=== PATIENT | male | born 1960 | race African-American/Black ===

== ENCOUNTER 2018-03-25 10:56 | Emergency (ER) | payer BC ==
[2018-03-25 11:53] LABS: Absolute Lymphocytes (CBC) 0.7 K/uL (0.7-4.9); Absolute Monocytes 0.3 K/uL (0.1-1.3); Absolute Neutrophil 6.3 K/uL (1.8-8.0); Basophils % 0.3 % (0-1.3); Eosinophils % 0.4 % (0-4.4); Hematocrit 45.4 % (39.6-49.0); Lymphocytes % 9.3 % (15.3-44.8); MCH 32.4 pg (27.0-35.0); MCV 96.7 fL (80-100); MPV 9.5 fL (7.6-11.3); Monocytes % 4.5 % (3.3-12.3); RBC Red Blood Cell Count 4.69 M/uL (4.33-5.43)
[2018-03-25] MEDS ORDERED: FAMOTIDINE 20 MG/2 ML VIAL IV ONE (11:56)
[2018-03-25] MEDS ORDERED: ONDANSETRON 4 MG/2 ML VIAL ONE (11:56)
[2018-03-25 12:03] LABS: Bicarbonate 26 mEq/L (21-31); Glucose Level 184 mg/dL (65-120); Lipase 23 U/L (22-51); Potassium 4.1 mEq/L (3.6-5.0); Sodium Level 135 mEq/L (135-145)
[2018-03-25 12:09] LABS: ALT/SGPT 19 IU/L (10-60); AST/SGOT 18 IU/L (10-42); Alkaline Phosphatase 65 IU/L (42-121); Amylase Level 54 U/L (28-100); BUN Blood Urea Nitrogen 20 mg/dL (6-20); Bilirubin Direct 0.1 mg/dL (0-0.2); Bilirubin Total 0.8 mg/dL (0.3-1.2); Magnesium 1.9 mg/dL (1.8-2.5); Protein, Total 7.8 g/dL (6.0-8.3)
--- NOTE | 2018-03-25 13:08 | RAD REPORT ---
EXAM DESCRIPTION: RAD - Chest Single View - 03/25/2018 12:47 pm CLINICAL HISTORY: Chest pain. COMPARISON: 07/06/2016 FINDINGS: Portable technique limits examination quality. The lungs are grossly clear. The heart is normal in size. No displaced fractures. IMPRESSION: No acute intrathoracic process suspected.
--- NOTE | 2018-03-25 13:41 | EKG ---
Test Date: 2018-03-25 Test Time: 11:40:18 Rig Welder: RICHARD MEASUREMENT RESULTS: Intervals: Rate: 75 NV: 190 QRSD: 88 QT: 372 QTc: 415 [place]: P: 40 NV: 190 QRS: 62 T: 102 INTERPRETIVE STATEMENTS: Normal sinus rhythm Nonspecific T wave abnormality Abnormal ECG Compared to ECG 07/07/2016 06:36:13 Sinus bradycardia no longer present Sinus arrhythmia no longer present T-wave abnormality still present Electronically Signed On 03-25-18 13:40:28 CDT by Yordy Arzola
[2018-03-25 13:54] LABS: Blood Morphology Comment NOT SEEN (NOT SEEN); Platelet Estimate ADEQ; Urine White Blood Cell Casts OK
--- NOTE | 2018-03-25 15:59 | RAD REPORT ---
EXAM DESCRIPTION: CT - Abdomen Pelvis W Contrast - 03/25/2018 3:45 pm CLINICAL HISTORY: Abdominal pain. Diarrhea and vomiting COMPARISON: None. TECHNIQUE: Computed axial tomography of the abdomen and pelvis was obtained. 100 cc Isovue-300 is ad ministered intravenously. Oral contrast was given. All CT scans are performed using dose optimization technique as appropriate and may include automated exposure control or mA/KV adjustment according to patient size. FINDINGS: Three lesions are present within the liver. The largest measures 15 millimeters. Hounsfield unit 45. Spleen, pancreas, adrenals and kidneys appear unremarkable. The appendix is not definitely seen. There is no evidence of diverticulitis. A small left inguinal hernia is present. IMPRESSION: Three hepatic lesions do not represent simple cysts. It is recommended that the patient have a nonemergent MRI with contrast and delayed images for further evaluation
[2018-03-25 17:21] LABS: Urine Bacteria NONE SEEN /HPF (NONE SEEN); Urine Culture Reflex Order NOT NEEDED; Urine Mucus HEAVY /HPF (NONE SEEN); Urine RBC NONE SEEN /HPF (NONE SEEN)
[2018-03-25 17:23] LABS: Urine Blood NEGATIVE (NEG); Urine Glucose TRACE (NEG); Urine Protein TRACE (NEG); Urine Specific Gravity 1.025 (1.005-1.030); Urine pH 5.5 (5.0-7.0)
--- NOTE | 2018-03-25 17:32 | EDPHYS ---
Physician Documentation [facility] Name: Stanton Christiansen Age: 57 yrs Sex: Male : 1960 Arrival Date: 03/25/2018 Time: 10:59 Bed 17 Private MD: None, None ED Physician Silvestre Avila HPI: 03/25 11:35 This 57 yrs old Black Male presents to ER via Ambulatory with complaints of Chest cp Tightness, Vomiting. 11:35 The patient presents to the emergency department with nausea, that is moderate, cp vomiting, that is intermittent, diarrhea, that is intermittent, abdominal pain, of the epigastric area, right upper quadrant and left upper quadrant. Onset: The symptoms/episode began/occurred yesterday. Associated signs and symptoms: Pertinent positives: chest pain, Pertinent negatives: constipation, fever, GI bleeding. 11:35 Severity of symptoms: in the emergency department the symptoms are unchanged despite cp home interventions. Historical: - Allergies: 11:11 No Known Allergies; aa5 - PMHx: 11:11 Diabetes - NIDDM; Myocardial infarction; aa5 - PSHx: 11:11 spleen removal; aa5 - Immunization history:: Adult Immunizations unknown. - Social history:: Smoking status: Patient uses tobacco products, smokes one-half pack cigarettes per day. - Ebola Screening: : No symptoms or risks identified at this time. ROS: 11:37 Eyes: Negative for injury, pain, redness, and discharge. cp 11:37 Constitutional: Negative for body aches, chills, fever, poor PO intake. 11:37 ENT: Negative for drainage from ear(s), ear pain, difficulty swallowing, difficulty handling secretions, hoarseness. 11:37 Cardiovascular: Positive for chest pain, Negative for edema, palpitations. 11:37 Respiratory: Negative for cough, shortness of breath, wheezing. 11:37 Abdomen/GI: Positive for abdominal pain, nausea, vomiting, and diarrhea, Negative for dysphagia, hematemesis, black/tarry stool, rectal bleeding. 11:37 : Negative for urinary symptoms, testicular pain 11:37 Skin: Negative for cellulitis, rash. 11:37 Neuro: Negative for altered mental status, dizziness, headache, syncope, near syncope, weakness. 11:37 All other systems are negative. Exam: 11:43 Constitutional: The patient appears in no acute distress, alert, awake, cp non-diaphoretic, non-toxic, well developed, well nourished, uncomfortable. 11:43 Head/Face: Normocephalic, atraumatic. Eyes: Pupils equal round and reactive to light, cp extra-ocular motions intact. Lids and lashes normal. Conjunctiva and sclera are non-icteric and not injected. Cornea within normal limits. Periorbital areas with no swelling, redness, or edema. ENT: Nares patent. No nasal discharge, no septal abnormalities noted. Tympanic membranes are normal and external auditory canals are clear. Oropharynx with no redness, swelling, or masses, exudates, or evidence of obstruction, uvula midline. Mucous membranes moist. Neck: Trachea midline, no thyromegaly or masses palpated, and no cervical lymphadenopathy. Supple, full range of motion without nuchal rigidity, or vertebral point tenderness. No Meningismus. Chest/axilla: Normal chest wall appearance and motion. Nontender with no deformity. No lesions are appreciated. 11:43 Cardiovascular: Rate: normal, Rhythm: regular, Pulses: Pulses are 2+ in right radial artery and left radial artery. Edema: is not appreciated, JVD: is not appreciated. 11:43 Respiratory: the patient does not display signs of respiratory distress, Respirations: normal, no use of accessory muscles, no retractions, no splinting, no tachypnea, labored breathing, is not present, Breath sounds: are clear throughout, no decreased breath sounds, no stridor, no wheezing. 11:43 Abdomen/GI: Inspection: abdomen appears normal, Bowel sounds: active, all quadrants, Palpation: soft, in all quadrants, moderate abdominal tenderness, in all quadrants, rebound tenderness, is not appreciated, voluntary guarding, is elicited in all quadrants, involuntary guarding, is not appreciated. 11:43 Back: CVA tenderness, is absent. 11:43 Skin: cellulitis, is not appreciated, no rash present. 11:43 Neuro: Orientation: to person, place \T\ time. Mentation: lucid, able to follow commands, Cerebellar function: is grossly normal, Motor: moves all fours, strength is normal, Sensation: no obvious gross deficits. 11:45 ECG was reviewed by the Attending Physician. cp 16:25 ECG was reviewed by the Attending Physician. cp Vital Signs: 11:12 BP 139 / 82; Pulse 77; Resp 18; Temp 98.6; Pulse Ox 96% ; Weight 85.28 kg (R); Height 5 aa5 ft. 11 in. (180.34 cm) (R); Pain 8/10; 12:47 BP 145 / 83; Pulse 72; Resp 22; Pulse Ox 97% on R/A; mh5 14:22 BP 128 / 82; Pulse 74; Resp 16; Pulse Ox 99% ; jl7 15:00 BP 144 / 85; Pulse 74; Resp 16; Pulse Ox 100% ; jl7 16:00 BP 154 / 88; Pulse 65; Resp 16; Pulse Ox 100% ; jl7 17:00 BP 139 / 85; Pulse 66; Resp 16; Pulse Ox 100% ; jl7 17:56 BP 148 / 84; Pulse 66; Resp 16; Pulse Ox 100% ; jl7 11:12 Body Mass Index 26.22 (85.28 kg, 180.34 cm) aa5 MDM: 11:15 Patient medically screened. cp 17:25 Data reviewed: vital signs, nurses notes, lab test result(s), EKG, radiologic studies, cp CT scan, plain films. 17:25 Test interpretation: by ED physician or midlevel provider: ECG. Response to treatment: cp the patient's symptoms have markedly improved after treatment. Special discussion: Based on the patient's history, exam, and Dx evaluation, there is no indication for emergent intervention or inpatient Tx. It is understood by the patient/guardian that if the Sx's persist or worsen they need to return immediately for re-evaluation. Based on the patient's Hx, exam, and Dx evaluation, there is no indication for emergent surgery or inpatient Tx. It is understood by the patient/guardian that if the Sx's persist or worsen they need to return immediately for re-evaluation. ED course: VSS. Symptoms markedly improved after IV fluids and meds. Patient tolerating po fluids and crackers. Will discharge to home for continued monitoring. 03/25 11:31 Order name: Amylase, Serum; Complete Time: 15:28 cp 03/25 11:31 Order name: Basic Metabolic Panel; Complete Time: 15:28 cp 03/25 15:29 Interpretation: Normal except: CL 98; GLUC 184. cp 03/25 11: Order name: CBC with Diff; Complete Time: 15:28 cp 06/05 15:29 Interpretation: Normal except: GRAZYNA% 85.5; LYM% 9.3. cp 06/05 11:31 Order name: Creatinine for Radiology; Complete Time: 15:28 cp 06/05 11:31 Order name: Hepatic Function; Complete Time: 15:28 cp 06/05 15:29 Interpretation: Normal except: GLOB 3.8. cp 06/05 11:31 Order name: Lipase; Complete Time: 15:28 cp 06/05 11:31 Order name: Urine Microscopic Only; Complete Time: 17:24 cp 06/05 11:31 Order name: Troponin (emerg Dept Use Only); Complete Time: 15:28 cp 06/05 11:31 Order name: Magnesium; Complete Time: 15:28 cp 06/05 11:31 Order name: XRAY Chest (1 view); Complete Time: 15:28 cp 06/05 11:55 Order name: CBC Smear Scan; Complete Time: 15:28 EDMS 06/05 12:44 Order name: CT Abd/Pelvis - W/Contrast; Complete Time: 16:06 cp 06/05 16:07 Order name: Troponin (emerg Dept Use Only); Complete Time: 17:24 cp 06/05 17:24 Interpretation: TROPED < 0.03; Reviewed. cp 06/05 17:19 Order name: Urine Dipstick--Ancillary (enter results); Complete Time: 17:24 bd 06/05 11:31 Order name: IV Saline Lock; Complete Time: 11:51 cp 06/05 11:31 Order name: Labs collected and sent; Complete Time: 11:51 cp 06/05 11:31 Order name: EKG; Complete Time: 11:32 cp 06/05 11:31 Order name: EKG - Nurse/Tech; Complete Time: 11:51 cp 06/05 16:07 Order name: EKG; Complete Time: 16:07 cp 06/05 16:07 Order name: EKG - Nurse/Tech; Complete Time: 17:54 cp EC:45 Rate is 75 beats/min. Rhythm is regular. CA interval is normal. QRS interval is normal. cp QT interval is normal. T waves are Inverted in leads aVL, V5. Interpreted by me. Reviewed by me. 16:25 Rate is 65 beats/min. Rhythm is regular. CA interval is prolonged at 206 msec. QRS cp interval is normal. QT interval is normal. T waves are Inverted in lead V5. Interpreted by me. Reviewed by me. Administered Medications: 12:05 Drug: Zofran 4 mg Route: IVP; Site: left antecubital; jl7 14:21 Follow up: Response: No adverse reaction jl7 12:07 Drug: Pepcid 20 mg Route: IVP; Site: left antecubital; jl7 14:21 Follow up: Response: No adverse reaction jl7 Disposition: 18:16 Co-signature as Attending Physician, Silvestre Avila MD. rn 03/26 07:19 Co-signature as Attending Physician, Silvestre Avila MD. rn Disposition: 03/25/18 17:31 Discharged to Home. Impression: Nausea and vomiting, Diarrhea, unspecified, Chest pain, unspecified. - Condition is Stable. - Discharge Instructions: Food Choices to Help Relieve Diarrhea, Adult, Nonspecific Chest Pain, Diarrhea, Nausea and Vomiting, Aspirin and Your Heart. - Prescriptions for Bentyl 20 mg Oral Tablet - take 1 tablet by ORAL route every 6 hours As needed; 30 tablet. Pepcid 20 mg Oral Tablet - take 1 tablet by ORAL route every 12 hours for 10 days; 20 tablet. Zofran 4 mg Oral Tablet - take 1 tablet by ORAL route every 12 hours As needed; 20 tablet. - Medication Reconciliation Form, Thank You Letter, Antibiotic Education, Prescription Opioid Use form. - Work release form (03/26/18 12:02). em1 - Follow up: Private Physician; When: 1 - 2 days; Reason: Recheck today's complaints. - Problem is new. - Symptoms have improved. Signatures: Dispatcher [employer] EDMS Silvestre Avila MD MD rn Calderon, Audri RN RN aa5 Vincent Anderson PA PA cp Leal, Jahala, RN RN [email or web address] Wu Freed em1 Corrections: (The following items were deleted from the chart) 03/25 17:58 17:31 03/25/2018 17:31 Discharged to Home. Impression: Nausea and vomiting; Diarrhea, jl7 unspecified; Chest pain, unspecified. Condition is Stable. Forms are Medication Reconciliation Form, Thank You Letter, Antibiotic Education, Prescription Opioid Use. Follow up: Private Physician; When: 1 - 2 days; Reason: Recheck today's complaints. Problem is new. Symptoms have improved. cp
--- NOTE | 2018-03-25 17:32 | ER ---
Nurse's Notes [facility] Name: Stanton Christiansen Age: 57 yrs Sex: Male : 1960 Arrival Date: 03/25/2018 Time: 10:59 Bed 17 Private MD: None, None Diagnosis: Nausea and vomiting;Diarrhea, unspecified;Chest pain, unspecified Presentation: 03/25 11:10 Presenting complaint: Patient states: "I think I got food poisoning yesterday". Pt c/o aa5 upped abd pain, chest pain, and N/V/D since yesterday. Transition of care: patient was not received from another setting of care. Onset of symptoms was March 2018. Risk Assessment: Do you want to hurt yourself or someone else? Patient reports no desire to harm self or others. Initial Sepsis Screen: Does the patient meet any 2 criteria? No. Patient's initial sepsis screen is negative. Does the patient have a suspected source of infection? No. Patient's initial sepsis screen is negative. Care prior to arrival: None. 11:10 Method Of Arrival: Ambulatory aa5 11:10 Acuity: PATRICK 3 aa5 Historical: - Allergies: 11:11 No Known Allergies; aa5 - PMHx: 11:11 Diabetes - NIDDM; Myocardial infarction; aa5 - PSHx: 11:11 spleen removal; aa5 - Immunization history:: Adult Immunizations unknown. - Social history:: Smoking status: Patient uses tobacco products, smokes one-half pack cigarettes per day. - Ebola Screening: : No symptoms or risks identified at this time. Screenin:30 Abuse screen: Denies threats or abuse. Denies injuries from another. Nutritional jl7 screening: No deficits noted. Tuberculosis screening: No symptoms or risk factors identified. Fall Risk IV access (20 points). Total [place] Fall Scale indicates No Risk (0-24 pts). Assessment: 11:30 General: Appears in no apparent distress. uncomfortable, Behavior is calm, cooperative, jl7 appropriate for age. Pain: Complains of pain in anterior aspect of left upper chest Pain does not radiate. Pain currently is 8 out of 10 on a pain scale. Quality of pain is described as "Pins \\T\\ [place]." Pain began 1 day ago. Is continuous. Neuro: Level of Consciousness is awake, alert, obeys commands, Oriented to person, place, time, situation. Cardiovascular: Heart tones S1 S2 present Patient's skin is warm and dry. Respiratory: Airway is patent Respiratory effort is even, unlabored, Respiratory pattern is regular, symmetrical, Breath sounds are clear bilaterally. GI: Reports diarrhea, nausea, vomiting, since this morning. : No signs and/or symptoms were reported regarding the genitourinary system. EENT: No signs and/or symptoms were reported regarding the EENT system. Derm: Skin is dry, Skin is normal, Skin temperature is warm. Musculoskeletal: No signs and/or symptoms reported regarding the musculoskeletal system. 14:00 Reassessment: pt finished drinking oral contrast, CT notified. jl7 15:00 Reassessment: Patient and/or family updated on plan of care and expected duration. Pain jl7 level reassessed. Patient is alert, oriented x 3, equal unlabored respirations, skin warm/dry/pink. 16:00 Reassessment: No changes from previously documented assessment. Patient and/or family jl7 updated on plan of care and expected duration. Pain level reassessed. Patient is alert, oriented x 3, equal unlabored respirations, skin warm/dry/pink. 17:00 Reassessment: Patient and/or family updated on plan of care and expected duration. Pain jl7 level reassessed. Patient is alert, oriented x 3, equal unlabored respirations, skin warm/dry/pink. Vital Signs: 11:12 BP 139 / 82; Pulse 77; Resp 18; Temp 98.6; Pulse Ox 96% ; Weight 85.28 kg (R); Height 5 aa5 ft. 11 in. (180.34 cm) (R); Pain 8/10; 12:47 BP 145 / 83; Pulse 72; Resp 22; Pulse Ox 97% on R/A; mh5 14:22 BP 128 / 82; Pulse 74; Resp 16; Pulse Ox 99% ; jl7 15:00 BP 144 / 85; Pulse 74; Resp 16; Pulse Ox 100% ; jl7 16:00 BP 154 / 88; Pulse 65; Resp 16; Pulse Ox 100% ; jl7 17:00 BP 139 / 85; Pulse 66; Resp 16; Pulse Ox 100% ; jl7 17:56 BP 148 / 84; Pulse 66; Resp 16; Pulse Ox 100% ; jl7 11:12 Body Mass Index 26.22 (85.28 kg, 180.34 cm) aa5 ED Course: 10:59 Patient arrived in ED. mr 10:59 None, None is Private Physician. mr 11:11 Triage completed. aa5 11:11 Arm band placed on. aa5 11:15 Vincent Anderson PA is PHCP. cp 11:15 Silvestre Avila MD is Attending Physician. cp 11:16 Noemy Schrader RN is Primary Nurse. jl7 11:30 Patient has correct armband on for positive identification. Placed in gown. Bed in low jl7 position. Call light in reach. Side rails up X 1. travel assistant on. Pulse ox on. NIBP on. 11:35 Missed attempt(s): 20 gauge in right forearm. Bleeding controlled, band aid applied, jl7 catheter tip intact. 11:37 Missed attempt(s): 20 gauge in right antecubital area. Bleeding controlled, band aid jl7 applied, catheter tip intact. 11:40 Initial lab(s) drawn, by ia, sent to lab. Inserted saline lock: 20 gauge in left jl7 antecubital area, using aseptic technique. Blood collected. Patient maintains SpO2 saturation greater than 95% on room air. 11:47 EKG done, by educational technician. reviewed by Vincent SHARP. at1 12:47 XRAY Chest (1 view) In Process Unspecified. EDMS 15:[address] via wheelchair. vm2 15:45 CT completed. Patient tolerated procedure well. Patient moved back from CT. vm2 15:45 CT Abd/Pelvis - W/Contrast In Process Unspecified. EDMS 17:57 No provider procedures requiring assistance completed. IV discontinued, intact, jl7 bleeding controlled, No redness/swelling at site. Pressure dressing applied. Administered Medications: 12:05 Drug: Zofran 4 mg Route: IVP; Site: left antecubital; jl7 14:21 Follow up: Response: No adverse reaction jl7 12:07 Drug: Pepcid 20 mg Route: IVP; Site: left antecubital; jl7 14:21 Follow up: Response: No adverse reaction jl7 Outcome: 17:31 Discharge ordered by . cp 17:57 Discharged to home ambulatory. jl7 17:57 Condition: stable 17:57 Discharge instructions given to patient, family, Instructed on discharge instructions, follow up and referral plans. medication usage, Demonstrated understanding of instructions, follow-up care, medications, Prescriptions given X 3. 17:58 Patient left the ED. jean-claude Signatures: Dispatcher [employer] DONAL LanieraSafia mr AvilaSophy, RN RN [email or web address] Cinda lowe, inspector [employer] truing EKG Tat1 Vincent Anderson PA PA cp Martinez, Maria Noemy Hill RN RN jl7 Nel [facility]
[2018-03-25 19:04] VITALS: TEMP 98.6
[2018-03-25 19:07] VITALS: O2SAT 100
[2018-03-25 19:10] VITALS: BP 148/84
--- NOTE | 2018-03-26 07:42 | EKG ---
Test Date: 2018-03-25 Test Time: 16:23:28 Floral Artist: RICHARD MEASUREMENT RESULTS: Intervals: Rate: 65 CA: 206 QRSD: 88 QT: 376 QTc: 391 [place]: P: 36 CA: 206 QRS: 51 T: 116 INTERPRETIVE STATEMENTS: Normal sinus rhythm Nonspecific T wave abnormality Abnormal ECG Compared to ECG 03/25/2018 11:40:18 No significant changes Electronically Signed On 03-26-18 07:41:47 CDT by Jose Lynn
== END 2018-03-25 17:58 | disposition home or self-care (01) ==
LOC: ER 10:56
DX: R11.2 Nausea with vomiting, unspecified (principal); R19.7 Diarrhea, unspecified; R07.9 Chest pain, unspecified; F17.210 Nicotine dependence, cigarettes, uncomplicated; I25.2 Old myocardial infarction
CPT/HCPCS: 36415; 71045; 74177; 80048; 80076; 81003; 81015; 82150; 82962; 83690; 83735; 84484; 85025; 93005; 96374; 96375; 99285; J2405; Q9967

== ENCOUNTER 2018-09-25 05:33 | Emergency (ER) | payer BC, SELFPAY ==
[2018-09-25 06:06] LABS: Absolute Lymphocytes (CBC) 2.4 K/uL (0.7-4.9); Absolute Monocytes 0.4 K/uL (0.1-1.3); Eosinophils % 1.8 % (0-4.4); Hematocrit 40.4 % (39.6-49.0); Lymphocytes % 39.3 % (15.3-44.8); MCV 94.8 fL (80-100); MPV 9.5 fL (7.6-11.3); Monocytes % 7.5 % (3.3-12.3); RBC Red Blood Cell Count 4.26 M/uL (4.33-5.43)
[2018-09-25 06:21] LABS: ALT/SGPT 26 U/L (12-78); AST/SGOT 17 U/L (15-37); Albumin 3.6 g/dL (3.4-5.0); Alkaline Phosphatase 76 U/L (45-117); BUN Blood Urea Nitrogen 22 mg/dL (7-18); Bicarbonate 24 mmol/L (21-32); Bilirubin Direct 0.1 mg/dL (0-0.2); Bilirubin Total 0.4 mg/dL (0.2-1.0); Glucose Level 172 mg/dL (74-106); Magnesium 2.3 mg/dL (1.8-2.4); NT PRO-BNP 64 pg/mL (<125); Potassium 4.1 mmol/L (3.5-5.1); Protein, Total 7.4 g/dL (6.4-8.2); Sodium Level 138 mmol/L (136-145); Troponin (Emerg Dept Use Only) < 0.02 ng/mL (0.0-0.045)
[2018-09-25] MEDS ORDERED: HYDROCODONE/APAP 10/325 TAB ONE (06:22)
--- NOTE | 2018-09-25 06:59 | ER ---
Nurse's Notes [facility] Name: Stanton Christiansen Age: 57 yrs Sex: Male : 1960 Arrival Date: 09/25/2018 Time: 05:35 Bed 5 Private MD: Diagnosis: Radiculopathy, cervical region Presentation: 09/25 05:35 Presenting complaint: Patient states: that since 0330 he has been having left chest fc pain that radiates to left neck and left arm. Also nausea but no vomiting. Transition of care: patient was not received from another setting of care. Onset of symptoms was September 25, 2018 at 03:30. Risk Assessment: Do you want to hurt yourself or someone else? Patient reports no desire to harm self or others. Initial Sepsis Screen: Does the patient meet any 2 criteria? No. Patient's initial sepsis screen is negative. Does the patient have a suspected source of infection? No. Patient's initial sepsis screen is negative. Care prior to arrival: Medication(s) given: Aleve x 2 at 0400. 05:35 Method Of Arrival: Wheelchair fc 05:35 Acuity: PATRICK 3 fc Historical: - Allergies: 05:46 No Known Allergies; fc - Home Meds: 05:46 None [Active]; fc - PMHx: 05:46 Diabetes - NIDDM; Myocardial infarction; fc - PSHx: 05:46 Appendectomy; fc - Immunization history:: Last tetanus immunization: unknown, Flu vaccine is up to date. - Social history:: Smoking status: Patient uses tobacco products, smokes one pack cigarettes per day. Patient uses alcohol, occasionally. - Ebola Screening: : Patient negative for fever greater than or equal to 101.5 degrees Fahrenheit, and additional compatible Ebola Virus Disease symptoms Patient denies exposure to infectious person Patient denies travel to an Ebola-affected area in the 21 days before illness onset. Screenin:35 Abuse screen: Denies threats or abuse. Nutritional screening: No deficits noted. fc Tuberculosis screening: No symptoms or risk factors identified. Fall Risk None identified. Assessment: 05:54 General: Appears in no apparent distress. uncomfortable, Behavior is calm, cooperative. bb Pain: Complains of pain in left side of neck and down left arm radiates from neck down left arm Pain began 4 hours ago. Neuro: Level of Consciousness is awake, alert, obeys commands, Oriented to person, place, time, situation. Cardiovascular: Heart tones S1 S2 present Capillary refill < 3 seconds Patient's skin is warm and dry. Pulses are all present. Edema is absent. Rhythm is sinus rhythm. Respiratory: Respiratory effort is even, unlabored, Respiratory pattern is regular, Breath sounds are clear bilaterally. GI: Abdomen is non-distended, Bowel sounds present X 4 quads. Abd is soft and non tender X 4 quads. : No signs and/or symptoms were reported regarding the genitourinary system. Derm: Skin is dry, Skin is normal, Skin temperature is warm. Musculoskeletal: Circulation, motion, and sensation intact. Reports pain in left arm. 06:43 Reassessment: Patient and/or family updated on plan of care and expected duration. Pain bb level reassessed. Patient is alert, oriented x 3, equal unlabored respirations, skin warm/dry/pink. pt states pain to left arm is slightly better. Vital Signs: 05:35 BP 173 / 94; Pulse 62; Resp 18; Temp 98.9(O); Pulse Ox 97% on R/A; Weight 99.79 kg (R); fc Height 5 ft. 10 in. (177.80 cm) (R); Pain 9/10; 06:43 BP 155 / 92; Pulse 60; Resp 20 S; Pulse Ox 97% on R/A; Pain 6/10; bb 05:35 Body Mass Index 31.57 (99.79 kg, 177.80 cm) fc ED Course: 05:35 Patient arrived in ED. es 05:35 Arm band placed on Patient placed in an exam room, on a stretcher. fc 05:35 Patient has correct armband on for positive identification. Placed in gown. Bed in low fc position. Call light in reach. polisher eyeglass frames on. Pulse ox on. NIBP on. 05:35 Patient maintains SpO2 saturation greater than 95% on room air. fc 05:43 Triage completed. fc 05:45 Inserted saline lock: 18 gauge in right forearm, using aseptic technique. ,using fc aseptic technique. per Kati Preciado RN Blood collected. 05:50 Initial lab(s) drawn, by me, sent to lab. bb 05:57 X-ray completed. Portable x-ray completed in exam room. Patient tolerated procedure kw well. 06:00 Minna Knott FNP-C is PHCP. kb 06:00 Ronnell Boland MD is Attending Physician. kb 06:17 Kati Preciado, RN is Primary Nurse. bb 06:17 XRAY Chest (1 view) Sent. mw2 06:17 Basic Metabolic Panel Sent. mw2 06:17 CBC with Diff Sent. mw2 06:17 LFT's Sent. mw2 06:17 Magnesium Sent. mw2 06:17 NT PRO-BNP Sent. mw2 06:17 PT-INR Sent. mw2 06:17 Troponin (emerg Dept Use Only) Sent. mw2 06:34 XRAY Chest (1 view) In Process Unspecified. EDMS Administered Medications: 06:17 Drug: Whitney 10 mg-325 mg 1 tabs Route: PO; bb 06:43 Follow up: Response: No adverse reaction; Pain is decreased bb Outcome: 06:59 Discharge ordered by . kb 07:44 Patient left the ED. ph Signatures: Dispatcher [employer] EDMS Minna Knott FNP-C FNP-Ckb Salyer, Edna es Chretien, Felicia, RN RN Kati Preciado, RN RN Teena Veras Patricia RN RN Mame Thurston mw2
--- NOTE | 2018-09-25 07:00 | EDPHYS ---
Physician Documentation [facility] Name: Stanton Christiansen Age: 57 yrs Sex: Male : 1960 Arrival Date: 09/25/2018 Time: 05:35 Bed 5 Private MD: ED Physician Ronnell Boland HPI: 09/25 06:28 This 57 yrs old Black Male presents to ER via Wheelchair with complaints of Chest Pain. kb 06:28 The patient or guardian complains of pain, that is acute, tenderness. The symptoms are kb located on the left posterior aspect of neck. Onset: The symptoms/episode began/occurred this morning, at 03:30. Context: The problem was sustained at home, The neck injury/problem resulted from from unknown cause. Associated signs and symptoms: The patient has no apparent associated signs or symptoms, The patient denies any alcohol use. The patient is not apparently intoxicated. No neurological symptoms were experienced by the patient prior to arrival in the emergency department. The pain radiates to the left arm. Modifying factors: The symptoms are alleviated by nothing. the symptoms are aggravated by movement, pressure. Severity of symptoms: At their worst the symptoms were moderate, in the emergency department the symptoms are unchanged. The patient has not experienced similar symptoms in the past. The patient has not recently seen a physician. Pt reports he was getting ready for work and started having pain to left side of neck that radiates down left arm. Tenderness upon palpation of left shoulder. Pain worse with movement of left arm at shoulder level. Full ROM. Denies chest pain. . Historical: - Allergies: 05:46 No Known Allergies; fc - Home Meds: 05:46 None [Active]; fc - PMHx: 05:46 Diabetes - NIDDM; Myocardial infarction; fc - PSHx: 05:46 Appendectomy; fc - Immunization history:: Last tetanus immunization: unknown, Flu vaccine is up to date. - Social history:: Smoking status: Patient uses tobacco products, smokes one pack cigarettes per day. Patient uses alcohol, occasionally. - Ebola Screening: : Patient negative for fever greater than or equal to 101.5 degrees Fahrenheit, and additional compatible Ebola Virus Disease symptoms Patient denies exposure to infectious person Patient denies travel to an Ebola-affected area in the 21 days before illness onset. ROS: 06:26 Constitutional: Negative for fever, chills, and weight loss, ENT: Negative for injury, kb pain, and discharge, Cardiovascular: Negative for chest pain, palpitations, and edema, Respiratory: Negative for shortness of breath, cough, wheezing, and pleuritic chest pain, Abdomen/GI: Negative for abdominal pain, nausea, vomiting, diarrhea, and constipation, MS/Extremity: Negative for injury and deformity, Skin: Negative for injury, rash, and discoloration, Neuro: Negative for headache, weakness, numbness, tingling, and seizure. 06:26 Neck: Positive for pain with movement, pain at rest, tenderness, of the left side of neck. Exam: 06:26 Constitutional: This is a well developed, well nourished patient who is awake, alert, kb and in no acute distress. Head/Face: Normocephalic, atraumatic. Chest/axilla: Normal chest wall appearance and motion. Nontender with no deformity. No lesions are appreciated. Cardiovascular: Regular rate and rhythm with a normal S1 and S2. No gallops, murmurs, or rubs. Normal PMI, no JVD. No pulse deficits. Respiratory: Lungs have equal breath sounds bilaterally, clear to auscultation and percussion. No rales, rhonchi or wheezes noted. No increased work of breathing, no retractions or nasal flaring. Abdomen/GI: Soft, non-tender, with normal bowel sounds. No distension or tympany. No guarding or rebound. No evidence of tenderness throughout. Back: No spinal tenderness. No costovertebral tenderness. Full range of motion. Skin: Warm, dry with normal turgor. Normal color with no rashes, no lesions, and no evidence of cellulitis. MS/ Extremity: Pulses equal, no cyanosis. Neurovascular intact. Full, normal range of motion. Neuro: Awake and alert, GCS 15, oriented to person, place, time, and situation. Cranial nerves II-XII grossly intact. Motor strength 5/5 in all extremities. Sensory grossly intact. Cerebellar exam normal. Normal gait. 06:26 Neck: External neck: tenderness, that is mild, of the left posterior aspect of neck. 06:26 Musculoskeletal/extremity: ROM: limited active range of motion due to pain, in the left arm, Circulation is intact in all extremities. Sensation intact. Vital Signs: 05:35 BP 173 / 94; Pulse 62; Resp 18; Temp 98.9(O); Pulse Ox 97% on R/A; Weight 99.79 kg (R); fc Height 5 ft. 10 in. (177.80 cm) (R); Pain 9/10; 06:43 BP 155 / 92; Pulse 60; Resp 20 S; Pulse Ox 97% on R/A; Pain 6/10; bb 05:35 Body Mass Index 31.57 (99.79 kg, 177.80 cm) fc MDM: 06:00 Patient medically screened. kb 06:27 Data reviewed: vital signs, nurses notes. Data interpreted: Pulse oximetry: on room air kb is 97 %. Interpretation: normal. Counseling: I had a detailed discussion with the patient and/or guardian regarding: the historical points, exam findings, and any diagnostic results supporting the discharge/admit diagnosis, lab results, radiology results, the need for outpatient follow up, a family practitioner, to return to the emergency department if symptoms worsen or persist or if there are any questions or concerns that arise at home. 09/25 05:42 Order name: Basic Metabolic Panel 09/25 05:42 Order name: CBC with Diff 09/25 05:42 Order name: LFT's 09/25 05:42 Order name: Magnesium 09/25 05:42 Order name: NT PRO-BNP 09/25 05:42 Order name: PT-INR 09/25 05:42 Order name: Troponin (emerg Dept Use Only) 09/25 06:08 Order name: Protime (+INR); Complete Time: 06:08 EDMS 09/25 06:18 Order name: CBC with Automated Diff; Complete Time: 06:25 EDMS 09/25 06:22 Order name: Basic Metabolic Panel; Complete Time: 06:25 EDMS 09/25 06:22 Order name: Liver (Hepatic) Function; Complete Time: 06:25 EDMS 09/25 06:22 Order name: Troponin (Emerg Dept Use Only); Complete Time: 06:25 EDMS 09/25 06:22 Order name: NT PRO-BNP; Complete Time: 06:25 EDMS 09/25 06:22 Order name: Magnesium; Complete Time: 06:25 EDMS 09/25 05:42 Order name: XRAY Chest (1 view) 09/25 05:42 Order name: EKG; Complete Time: 05:43 09/25 05:42 Order name: Cardiac monitoring; Complete Time: 05:48 09/25 05:42 Order name: EKG - Nurse/Tech; Complete Time: 05:48 09/25 05:42 Order name: IV Saline Lock; Complete Time: 05:48 09/25 05:42 Order name: Labs collected and sent; Complete Time: 05:48 09/25 05:42 Order name: O2 Per Protocol; Complete Time: 05:48 09/25 05:42 Order name: O2 Sat Monitoring; Complete Time: 05:48 Administered Medications: 06:17 Drug: [place] 10 mg-325 mg 1 tabs Route: PO; bb 06:43 Follow up: Response: No adverse reaction; Pain is decreased bb Disposition: 19:17 Co-signature as Attending Physician, Ronnell Boland MD. Disposition: 09/25/18 06:59 Discharged to Home. Impression: Radiculopathy, cervical region. - Condition is Stable. - Discharge Instructions: Cervical Radiculopathy, [id number]. - Prescriptions for Cyclobenzaprine 10 mg Oral Tablet - take 1 tablet by ORAL route every 8 hours As needed; 21 tablet. Diclofenac Sodium 75 mg Oral Tablet, Delayed Release (E.C.) - take 1 tablet by ORAL route 2 times per day As needed; 30 tablet. - Medication Reconciliation Form, Thank You Letter, Antibiotic Education, Prescription Opioid Use, Work release form form. - Follow up: Emergency Department; When: As needed; Reason: Worsening of condition. Follow up: Private Physician; When: 2 - 3 days; Reason: Recheck today's complaints, Continuance of care, Re-evaluation by your physician. Signatures: Dispatcher [employer] EDMS Minna Knott, PIA MAURICIO-Sarita Yanez RN RN fc Ballard, Brenda, RN RN bb Hall, Patricia, RN RN ph Starr, Gregory, MD MD Corrections: (The following items were deleted from the chart) 07:44 06:59 09/25/2018 06:59 Discharged to Home. Impression: Radiculopathy, cervical region. ph Condition is Stable. Discharge Instructions: Cervical Radiculopathy, [id number]. Prescriptions for Cyclobenzaprine 10 mg Oral Tablet - take 1 tablet by ORAL route every 8 hours As needed; 21 tablet, Diclofenac Sodium 75 mg Oral Tablet, Delayed Release (E.C.) - take 1 tablet by ORAL route 2 times per day As needed; 30 tablet. and Forms are Medication Reconciliation Form, Thank You Letter, Antibiotic Education, Prescription Opioid Use. Follow up: Emergency Department; When: As needed; Reason: Worsening of condition. Follow up: Private Physician; When: 2 - 3 days; Reason: Recheck today's complaints, Continuance of care, Re-evaluation by your physician. kb
[2018-09-25 07:51] VITALS: TEMP 98.9; O2SAT 97
[2018-09-25 07:52] VITALS: BP 155/92
--- NOTE | 2018-09-25 08:30 | RAD REPORT ---
EXAM DESCRIPTION: RAD - Chest Single View - 09/25/2018 6:00 am CLINICAL HISTORY: Left-sided chest pain radiating into the neck and left arm COMPARISON: March 25, 2018 TECHNIQUE: AP portable chest image was obtained 0546 hours . FINDINGS: Lungs are clear. Heart and vasculature are normal. No measurable pleural effusion and no p neumothorax. No acute bony abnormality seen. No acute aortic findings suspected. IMPRESSION: No suspicious change from the comparison. No acute finding seen.
--- NOTE | 2018-09-25 11:29 | EKG ---
Test Date: 2018-09-25 Test Time: 05:40:30 Dust Mixer: SUREKHA MEASUREMENT RESULTS: Intervals: Rate: 65 DC: 192 QRSD: 82 QT: 372 QTc: 386 [place]: P: 42 DC: 192 QRS: 57 T: 92 INTERPRETIVE STATEMENTS: Normal sinus rhythm Nonspecific T wave abnormality Abnormal ECG Compared to ECG 03/25/2018 16:23:28 No significant changes Electronically Signed On 09-25-18 11:27:41 HOME IMPROVEMENT ADVISOR by Yordy Arzola
== END 2018-09-25 07:44 | disposition home or self-care (01) ==
LOC: ER 05:33
DX: M54.12 Radiculopathy, cervical region (principal); F17.210 Nicotine dependence, cigarettes, uncomplicated; I25.2 Old myocardial infarction
CPT/HCPCS: 36415; 71045; 80048; 80076; 83735; 83880; 84484; 85025; 85610; 93005; 99285

== ENCOUNTER 2020-01-12 12:47 | Emergency (ER) | payer BC, SELFPAY ==
--- NOTE | 2020-01-12 14:44 | ER ---
Nurse's Notes [facility] Name: Stanton Christiansen Age: 59 yrs Sex: Male : 1960 Arrival Date: 01/12/2020 Time: 12:53 Bed 6 Private MD: Diagnosis: Cough Presentation: 01/11 13:00 Chief complaint: Productive cough with yellow sputum x 1 week. Denies SOB/fever/pain. hb Coronavirus screen: Patient reports a subjective fever or greater than 100.4F, or cough, or shortness of breath, or difficulty breathing. Surgical mask placed on patient. Patient moved to private room, placed in contact and droplet isolation with eye protection until further assessment. Ebola Screen: No symptoms or risks identified at this time. Initial Sepsis Screen: Does the patient meet any 2 criteria? No. Patient's initial sepsis screen is negative. Does the patient have a suspected source of infection? No. Patient's initial sepsis screen is negative. Risk Assessment: Do you want to hurt yourself or someone else? Patient reports no desire to harm self or others. 13:00 Method Of Arrival: Ambulatory hb 13:00 Acuity: PATRICK 4 hb Historical: - Allergies: 13:01 No Known Allergies; hb - PMHx: 13:01 Diabetes - NIDDM; Myocardial infarction; hb - PSHx: 13:01 Appendectomy; hb - Immunization history:: Adult Immunizations up to date. - Social history:: Smoking status: Patient reports the use of cigarette tobacco products, smokes one pack cigarettes per day. - Family history:: not pertinent. - Hospitalizations: : No recent hospitalization is reported. Screenin:17 Abuse screen: Denies threats or abuse. Denies injuries from another. Nutritional jl7 screening: No deficits noted. Tuberculosis screening: No symptoms or risk factors identified. Fall Risk None identified. Assessment: 13:17 General: Appears in no apparent distress. comfortable, Behavior is calm, cooperative, jl7 appropriate for age. Pain: Denies pain. Neuro: Level of Consciousness is awake, alert, obeys commands, Oriented to person, place, time, situation. Cardiovascular: Patient's skin is warm and dry. Respiratory: Reports cough that is Airway is patent Respiratory effort is even, unlabored, Respiratory pattern is regular, symmetrical, the patient has mild shortness of breath. Derm: Skin is pink, warm \T\ dry. 14:48 Reassessment: pending x-ray results, unable to discharge at this time. em Vital Signs: 13:00 BP 132 / 80; Pulse 78; Resp 16; Temp 97.9; Pulse Ox 98% ; Weight 95.25 kg; Height 5 ft. hb 11 in. (180.34 cm); Pain 0/10; 13:00 Body Mass Index 29.29 (95.25 kg, 180.34 cm) hb ED Course: 12:53 Patient arrived in ED. mr 13:01 Triage completed. hb 13:01 Arm band placed on. hb 13:06 Andres Adamson, RN is Primary Nurse. em 13:07 Silvestre Avila MD is Attending Physician. rn 13:17 Patient has correct armband on for positive identification. Placed in gown. Bed in low jl7 position. Call light in reach. Side rails up X 1. Pulse ox on. NIBP on. 13:43 XRAY Chest (1 view) In Process Unspecified. EDMS 15:02 No provider procedures requiring assistance completed. Patient did not have IV access em during this emergency room visit. Administered Medications: No medications were administered Outcome: 14:40 Discharge ordered by . rn 15:02 Discharged to home ambulatory. em 15:02 Condition: good 15:02 Discharge instructions given to patient, Instructed on discharge instructions, follow up and referral plans. Demonstrated understanding of instructions, follow-up care. 15:02 Patient left the ED. em Signatures: Dispatcher [employer] [facility] Alma Will mr Andres Adamson, PIERRE JAY Silvestre Avila MD MD rn Baxter, Heather, RN RN hb Leal, Jahala, RN RN jl7
--- NOTE | 2020-01-12 14:45 | EDPHYS ---
Physician Documentation [facility] Name: Stanton Christiansen Age: 59 yrs Sex: Male : 1960 Arrival Date: 01/12/2020 Time: 12:53 Bed 6 Private MD: ED Physician Silvestre Avila HPI: 01/11 13:12 This 59 yrs old Black Male presents to ER via Ambulatory with complaints of Cough. rn 13:12 The patient or guardian reports cough. Onset: The symptoms/episode began/occurred 1 rn week(s) ago. Severity of symptoms: At their worst the symptoms were very mild, in the emergency department the symptoms are unchanged. Modifying factors: The symptoms are alleviated by nothing, the symptoms are aggravated by nothing. The patient has experienced similar episodes in the past. Reports had a "cold" for the last week, + mild cough and runny nose. Denies having fever or sob. Reports is getting over it, feels like is pretty much over, coughed to clear his throat at work today and sent in for evaluation. Denies productive cough and sob. No hemoptysis. No recent travel and no known exposure to COVID-19. Reports feels fine and would not have come to ER today if work didn't make him. Is smoker. . Historical: - Allergies: 13: No Known Allergies; hb - PMHx: 13: Diabetes - NIDDM; Myocardial infarction; hb - PSHx: 13:01 Appendectomy; hb - Immunization history:: Adult Immunizations up to date. - Social history:: Smoking status: Patient reports the use of cigarette tobacco products, smokes one pack cigarettes per day. - Family history:: not pertinent. - Hospitalizations: : No recent hospitalization is reported. ROS: 13:12 Constitutional: Negative for fever, chills, and weight loss, Eyes: Negative for injury, rn pain, redness, and discharge, ENT: + runny nose Cardiovascular: Negative for chest pain, palpitations, and edema, Respiratory: + mild cough, negative for sob or hemoptysis Abdomen/GI: Negative for abdominal pain, nausea, vomiting, diarrhea, and constipation, MS/Extremity: Negative for injury and deformity, Skin: Negative for injury, rash, and discoloration, Neuro: Negative for headache, weakness, numbness, tingling, and seizure. Exam: 13:12 Constitutional: This is a well developed, well nourished patient who is awake, alert, rn and in no acute distress. Head/Face: Normocephalic, atraumatic. ENT: No stridor Cardiovascular: Regular rate and rhythm. No pulse deficits. Respiratory: + faint wheezing bilateral mid lung chao. No increased work of breathing, no retractions or nasal flaring. Skin: Warm, dry MS/ Extremity: Pulses equal, no cyanosis. Neurovascular intact. Full, normal range of motion. Equal circumference. Neuro: Awake and alert, GCS 15 Vital Signs: 13:00 BP 132 / 80; Pulse 78; Resp 16; Temp 97.9; Pulse Ox 98% ; Weight 95.25 kg; Height 5 ft. hb 11 in. (180.34 cm); Pain 0/10; 13:00 Body Mass Index 29.29 (95.25 kg, 180.34 cm) hb MDM: 13:07 Patient medically screened. rn 14:38 Differential Diagnosis: Bronchitis Upper Respiratory Infection Viral Syndrome rn Pneumonia. Data reviewed: vital signs, nurses notes, radiologic studies, plain films. Test interpretation: by ED physician or midlevel provider: plain radiologic studies, CXR negative for acute infiltrate/pneumonia. Counseling: I had a detailed discussion with the patient and/or guardian regarding: the historical points, exam findings, and any diagnostic results supporting the discharge/admit diagnosis, radiology results, the need for outpatient follow up, to return to the emergency department if symptoms worsen or persist or if there are any questions or concerns that arise at home. Special discussion: I discussed with the patient/guardian in detail that at this point there is no indication for admission to the hospital. It is understood, however, that if the symptoms persist or worsen the patient needs to return immediately for re-evaluation. ED course: Neg cxr, no indication for bloodwork or COVID-19 testing given feels fine, states "cold" is behind him, is smoker, without fever or productive cough. Can return to work. Return precautions given and understood.. 14:41 Counseling: I had a detailed discussion with the patient and/or guardian regarding: rn smoking cessation. 01/11 13:12 Order name: XRAY Chest (1 view) rn Administered Medications: No medications were administered Disposition: 01/12/20 14:40 Discharged to Home. Impression: Cough. - Condition is Stable. - Discharge Instructions: Cough, Adult. - Work release form, Medication Reconciliation Form, Thank You Letter, Antibiotic Education, Prescription Opioid Use form. - Follow up: Private Physician; When: As needed; Reason: Recheck today's complaints, Re-evaluation by your physician. - Problem is new. - Symptoms have improved. Signatures: Dispatcher [employer] Andres Deng RN RN em Nieto, Roman, MD MD rn Baxter, Heather, RN RN Corrections: (The following items were deleted from the chart) 15:02 14:40 01/12/2020 14:40 Discharged to Home. Impression: Cough. Condition is Stable. em Forms are Medication Reconciliation Form, Thank You Letter, Antibiotic Education, Prescription Opioid Use. Follow up: Private Physician; When: As needed; Reason: Recheck today's complaints, Re-evaluation by your physician. Problem is new. Symptoms have improved. rn
--- NOTE | 2020-01-12 14:53 | RAD REPORT ---
EXAM DESCRIPTION: Dwayne Single View01/12/2020 1:43 pm CLINICAL HISTORY: cough COMPARISON: 2017 FINDINGS: The lungs appear clear of acute infiltrate. The heart is normal size IMPRESSION: No acute abnormalities displayed
[2020-01-12 15:09] VITALS: BP 132/80; TEMP 97.9; O2SAT 98
== END 2020-01-12 15:02 | disposition home or self-care (01) ==
LOC: ER 12:47
DX: R05 Cough (principal); F17.210 Nicotine dependence, cigarettes, uncomplicated; I25.2 Old myocardial infarction
CPT/HCPCS: 71045; 99283

== ENCOUNTER 2021-05-07 08:47 | Emergency (ER) | payer BC, SELFPAY ==
[2021-05-07] MEDS ORDERED: LIDOCAINE 4% PATCH ONE (09:45)
[2021-05-07] MEDS ORDERED: CYCLOBENZAPRINE 10 MG TAB ONE (09:45)
[2021-05-07] MEDS ORDERED: KETOROLAC 30 MG/ML INJ ONE (09:45)
--- NOTE | 2021-05-07 09:54 | RAD REPORT ---
EXAM DESCRIPTION: RAD - Hand Left 3 View - 05/07/2021 9:29 am CLINICAL HISTORY: PAIN COMPARISON: Chest Single View dated 05/02/2021; CHEST PA AND LAT 2 VIEW dated 02/13/2011Hand Left 3 Vi ew dated 07/22/2015 FINDINGS: Mild degenerative changes are present. No acute fracture or dislocation is seen.
--- NOTE | 2021-05-07 10:29 | ER ---
Nurse's Notes [facility] Name: Stanton Christiansen Age: 60 yrs Sex: Male : 1960 Arrival Date: 05/07/2021 Time: 08:51 Bed 8 Private MD: Diagnosis: Pain in left hand;Low back pain;Balanitis Presentation: 05/07 09:07 Chief complaint: Patient states: 1. Penile swelling for 4 days. No fever. 2. L hand ll1 pain with decreased ROM for months. 3. L lower back pain for months. Coronavirus screen: Client denies travel out of the [place] in the last 14 days. At this time, the client does not indicate any symptoms associated with coronavirus-19. Ebola Screen: Patient denies travel to an Ebola-affected area in the 21 days before illness onset. Initial Sepsis Screen: Does the patient meet any 2 criteria? No. Patient's initial sepsis screen is negative. Does the patient have a suspected source of infection? No. Patient's initial sepsis screen is negative. Risk Assessment: Do you want to hurt yourself or someone else? Patient reports no desire to harm self or others. Onset of symptoms was October 21, 2020. 09:07 Method Of Arrival: Ambulatory ll1 09:07 Acuity: PATRICK 3 ll1 Historical: - Allergies: 09:07 No Known Drug Allergies; ll1 - PMHx: 09:07 Diabetes - NIDDM; Myocardial infarction; ll1 - PSHx: 09:07 Appendectomy; ll1 - Immunization history:: Client reports having NOT received the Covid vaccine. Flu vaccine is not up to date. - Social history:: Smoking status: Patient reports the use of cigarette tobacco products, smokes one-half pack cigarettes per day. Screenin:32 Abuse screen: Denies threats or abuse. Denies injuries from another. Nutritional sv screening: No deficits noted. Tuberculosis screening: No symptoms or risk factors identified. Fall Risk None identified. Assessment: 09:31 General: Appears in no apparent distress. comfortable, Behavior is calm, cooperative, sv appropriate for age. Pain: Complains of pain in right low back and hand Pain currently is 7 out of 10 on a pain scale. Is continuous. Neuro: Level of Consciousness is awake, alert, obeys commands, Oriented to person, place, time, situation, Moves all extremities. Full function Speech is normal. Respiratory: Airway is patent Respiratory effort is even, unlabored, Respiratory pattern is regular, symmetrical. Derm: Skin is intact, Skin is pink, warm \T\ dry. 10:41 Reassessment: Patient appears in no apparent distress at this time. No changes from sv previously documented assessment. Patient and/or family updated on plan of care and expected duration. Pain level reassessed. Patient is alert, oriented x 3, equal unlabored respirations, skin warm/dry/pink. Vital Signs: 09:07 BP 129 / 81; Pulse 79; Resp 17; Temp 97.2; Pulse Ox 100% ; Weight 90.72 kg; Height 5 ll1 ft. 10 in. (177.80 cm); Pain 7/10; 09:07 Body Mass Index 28.70 (90.72 kg, 177.80 cm) ll1 ED Course: 08:51 Patient arrived in ED. ds1 09:01 Fermin Allred NP is PHCP. pm1 09:01 Silvestre Avila MD is Attending Physician. pm1 09:07 Arm band placed on Patient placed in an exam room, on a stretcher. ll1 09:09 Triage completed. ll1 09:21 Mary Carmen Torres, PIERRE is Primary Nurse. sv 09:29 Hand Left 3 View XRAY In Process Unspecified. EDMS 09:30 Patient has correct armband on for positive identification. Placed in gown. Bed in low sv position. Call light in reach. Side rails up X 1. Door closed. Head of bed elevated. 09:30 X-ray(s) taken. sv 10:40 No provider procedures requiring assistance completed. Patient did not have IV access sv during this emergency room visit. Administered Medications: 09:31 Drug: Lidoderm Patch 5 % (700 mg/patch) 1 patches Route: Topical; Site: affected area; sv 09:31 Drug: Flexeril (cyclobenzaprine) 10 mg Route: PO; sv 10:11 Follow up: Response: No adverse reaction sv 09:31 Drug: Ketorolac 30 mg Route: IM; Site: right deltoid; sv 10:11 Follow up: Response: No adverse reaction sv Outcome: 10:29 Discharge ordered by . pm1 10:40 Discharged to home ambulatory. sv 10:40 Condition: stable 10:40 Discharge instructions given to patient, Instructed on discharge instructions, follow up and referral plans. medication usage, Demonstrated understanding of instructions, follow-up care, medications, Prescriptions given X 4. 10:41 Patient left the ED. sv Signatures: Dispatcher [employer] Mary Carmen Marie RN RN sv Abbey Michael ds1 Fermin Allred, FINISHED GARMENT INSPECTOR FINISHED GARMENT INSPECTOR pm1 Safia Domingo RN RN ll1
--- NOTE | 2021-05-07 10:30 | EDPHYS ---
Physician Documentation [facility] Name: Stanton Christiansen Age: 60 yrs Sex: Male : 1960 Arrival Date: 05/07/2021 Time: 08:51 Bed 8 Private MD: ED Physician Silvestre Avila HPI: 05/07 10:03 This 60 yrs old Black Male presents to ER via Ambulatory with complaints of Numbness Of pm1 Hand, Back Pain. 10:03 The patient or guardian reports pain. The complaints affect the left hand diffusely. pm1 Context: resulted from a crush injury, 7 months ago. Severity of symptoms: in the emergency department the symptoms are unchanged. The patient has experienced similar episodes in the past, chronically. The patient has not recently seen a physician. Patient complaining of right low back pain for the past 7 months. Patient also reports swelling to the foreskin for the past week. Historical: - Allergies: 09:07 No Known Drug Allergies; ll1 - PMHx: 09:07 Diabetes - NIDDM; Myocardial infarction; ll1 - PSHx: 09:07 Appendectomy; ll1 - Immunization history:: Client reports having NOT received the Covid vaccine. Flu vaccine is not up to date. - Social history:: Smoking status: Patient reports the use of cigarette tobacco products, smokes one-half pack cigarettes per day. ROS: 10:03 Constitutional: Negative for fever, chills, and weight loss, Cardiovascular: Negative pm1 for chest pain, palpitations, and edema, Respiratory: Negative for shortness of breath, cough, wheezing, and pleuritic chest pain, Abdomen/GI: Negative for abdominal pain, nausea, vomiting, diarrhea, and constipation. 10:03 Neuro: Negative for headache, weakness, numbness, tingling, and seizure. 10:03 Back: Positive for of the right low back, pain. 10:03 : Positive for swelling to foreskin, Negative for urinary symptoms. 10:03 MS/extremity: Positive for pain, of the left hand. 10:03 All other systems are negative. Exam: 10:03 Constitutional: This is a well developed, well nourished patient who is awake, alert, pm1 and in no acute distress. Head/Face: Normocephalic, atraumatic. 10:03 Skin: Warm, dry with normal turgor. Normal color with no rashes, no lesions, and no evidence of cellulitis. 10:03 Eyes: Exam is negative for acute changes, Extraocular movements: no acute changes. 10:03 ENT: Exam is negative for acute changes, Mouth: Lips: normal, Oral mucosa: normal, pink and intact, moist. 10:03 Cardiovascular: Exam negative for acute changes, Rate: normal, Rhythm: regular, Pulses: no pulse deficits are appreciated. 10:03 Respiratory: Exam negative for acute changes, respiratory distress, shortness of breath. 10:03 Abdomen/GI: Inspection: abdomen appears normal, Palpation: abdomen is soft and non-tender, in all quadrants. 10:03 Back: vertebral tenderness, is not appreciated, muscle spasm, is appreciated in the right low back. 10:03 Musculoskeletal/extremity: Extremities: all appear grossly normal, with no appreciated pain with palpation, ROM: intact in all extremities. 10:03 Neuro: Exam negative for acute changes, Orientation: is normal, Mentation: is normal, Motor: is normal, moves all fours. 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 Vital Signs: 09:07 BP 129 / 81; Pulse 79; Resp 17; Temp 97.2; Pulse Ox 100% ; Weight 90.72 kg; Height 5 ll1 ft. 10 in. (177.80 cm); Pain 7/10; 09:07 Body Mass Index 28.70 (90.72 kg, 177.80 cm) ll1 MDM: 09:04 Patient medically screened. pm1 10:19 Data reviewed: vital signs. Data interpreted: Pulse oximetry: on room air is 100 %. pm1 Interpretation: normal. Counseling: I had a detailed discussion with the patient and/or guardian regarding: the historical points, exam findings, and any diagnostic results supporting the discharge/admit diagnosis, radiology results, the need for outpatient follow up, to return to the emergency department if symptoms worsen or persist or if there are any questions or concerns that arise at home. 10:19 ED course: Instructed the patient to follow up with urology in 2-3 days for evaluation pm1 of penile mass. 05/07 09:12 Order name: Hand Left 3 View XRAY; Complete Time: 10:09 pm1 Administered Medications: 09:31 Drug: Lidoderm Patch 5 % (700 mg/patch) 1 patches Route: Topical; Site: affected area; sv 09:31 Drug: Flexeril (cyclobenzaprine) 10 mg Route: PO; sv 10:11 Follow up: Response: No adverse reaction sv 09:31 Drug: Ketorolac 30 mg Route: IM; Site: right deltoid; sv 10:11 Follow up: Response: No adverse reaction sv Disposition: 11:12 Co-signature as Attending Physician, Silvestre Avila MD. rn Disposition Summary: 05/07/21 10:29 Discharge Ordered Location: Home pm1 Problem: new pm1 Symptoms: have improved pm1 Condition: Stable pm1 Diagnosis - Pain in left hand pm1 - Low back pain pm1 - Balanitis pm1 Followup: pm1 - With: Emergency Department - When: As needed - Reason: Worsening of condition Followup: pm1 - With: Private Physician - When: 2 - 3 days - Reason: Recheck today's complaints, Continuance of care, Re-evaluation by your physician Discharge Instructions: - Discharge Summary Sheet pm1 - Arthritis pm1 - Balanitis pm1 - Musculoskeletal Pain pm1 Forms: - Medication Reconciliation Form pm1 - Thank You Letter pm1 - Antibiotic Education pm1 - Prescription Opioid Use pm1 Prescriptions: - Clotrimazole 1 % Topical Cream - Apply to affected area 1 application by TOPICAL route every 12 hours; 15 gram; pm1 Refills: 0, Product Selection Permitted - Cyclobenzaprine 10 mg Oral Tablet - take 1 tablet by ORAL route every 8 hours As needed; 30 tablet; Refills: 0, pm1 Product Selection Permitted - Diclofenac Sodium 75 mg Oral Tablet Sustained Release - take 1 tablet by ORAL route 2 times per day; 30 tablet; Refills: 0, Product pm1 Selection Permitted - Metformin 1,000 mg Oral Tablet - take 1 tablet by ORAL route every 12 hours with morning and evening meals; 20 pm1 tablet; Refills: 0, Product Selection Permitted Signatures: Dispatcher [employer] Mary Carmen Marie RN RN sv Silvestre Avila MD MD rn Marinas, Patrick, [employer]PL[employer] ENGINE INSPECTOR pm1 Safia Domingo RN RN ll1 Corrections: (The following items were deleted from the chart) 18:43 10:19 : Male external genitalia: penile discharge, is absent, swelling, of the pm1 foreskin is noted, that is mild, with mild erythema, large move able lesion on the right side of penile shaft, pm1
[2021-05-07 10:49] VITALS: BP 129/81; TEMP 97.2; O2SAT 100
== END 2021-05-07 10:41 | disposition home or self-care (01) ==
LOC: ER 08:47
DX: M54.5 Low back pain (principal); N48.1 Balanitis; F17.210 Nicotine dependence, cigarettes, uncomplicated; E11.9 Type 2 diabetes mellitus without complications
CPT/HCPCS: 96372; 99283

== ENCOUNTER 2021-06-21 20:53 | Emergency (ER) | payer SELFPAY ==
--- NOTE | 2021-06-21 23:14 | EDPHYS ---
Physician Documentation [facility] Name: Stanton Christiansen Age: 60 yrs Sex: Male : 1960 Arrival Date: 06/21/2021 Time: 20:54 Bed Treatment Private MD: Vincent Basilio HPI: 06/21 23:10 This 60 yrs old Black Male presents to ER via Ambulatory with complaints of Finger jmm Injury. 23:10 Onset: The symptoms/episode began/occurred acutely, today. Modifying factors: The jmm symptoms are alleviated by nothing, the symptoms are aggravated by movement. Associated signs and symptoms: Pertinent negatives: fever. Patient states falling earlier today and hitting his hand. Denies other injury. . Historical: - Allergies: 22:01 No Known Allergies; kg - Home Meds: 22:01 metformin Oral [Active]; kg - PMHx: 22:01 Myocardial infarction; Diabetes - NIDDM; kg - PSHx: 22:01 Appendectomy; kg - Immunization history:: Adult Immunizations up to date, Client reports receiving the 2nd dose of the Covid vaccine, Date received: June 20, 2021 [employer] Client reports receiving the 1st dose of the Covid vaccine, May 29, 2021 [employer]. - Social history:: Smoking status: Patient reports the use of cigarette tobacco products, smokes one pack cigarettes per day. Patient uses alcohol, weekly. ROS: 23:10 Constitutional: Negative for fever, chills, and weight loss, Cardiovascular: Negative jmm for chest pain, palpitations, and edema, Respiratory: Negative for shortness of breath, cough, wheezing, and pleuritic chest pain. 23:10 MS/extremity: Positive for injury or acute deformity. 23:10 All other systems are negative. Exam: 23:10 Constitutional: This is a well developed, well nourished patient who is awake, alert, jmm and in no acute distress. Head/Face: atraumatic. Eyes: EOMI, no conjunctival erythema appreciated ENT: Moist Mucus Membranes Neck: Trachea midline, Supple Chest/axilla: Normal chest wall appearance and motion. Cardiovascular: Regular rate and rhythm. No edema appreciated Respiratory: Normal respirations, no respiratory distress appreciated Abdomen/GI: Non distended, soft Back: Normal ROM Skin: General appearance color normal 23:10 Musculoskeletal/extremity: ROM: intact in all extremities, Distal phalanx tender to palpation, no obvious deformity noted, less than 2 seconds capillary refill, neurovascular intact. Vital Signs: 21:58 BP 121 / 69; Pulse 76; Resp 20; Temp 98.8(TE); Pulse Ox 93% on R/A; Weight 99.79 kg kg (R); Height 5 ft. 9 in. (175.26 cm) (R); Pain 8/10; 23:22 BP 119 / 75; Pulse 82; Resp 17; Pulse Ox 98% on R/A; Pain 6/10; tl1 21:58 Body Mass Index 32.49 (99.79 kg, 175.26 cm) kg MDM: 22:47 Patient medically screened. [facility] 23:10 Data reviewed: vital signs, nurses notes. Counseling: I had a detailed discussion with lemuel the patient and/or guardian regarding: the historical points, exam findings, and any diagnostic results supporting the discharge/admit diagnosis, radiology results, the need for outpatient follow up, to return to the emergency department if symptoms worsen or persist or if there are any questions or concerns that arise at home. 06/21 22:06 Order name: XRAY Hand LEFT 3 View kg 06/21 22:57 Order name: Finger Splint; Complete Time: 23:17 [facility] Administered Medications: No medications were administered Disposition: 06/22 07:20 Co-signature as Attending Physician, Vincent Shea MD I agree with the assessment and [facility] plan of care. Disposition Summary: 06/21/21 23:13 Discharge Ordered Location: Home [facility] Condition: Stable [facility] Diagnosis - Contusion of left middle finger without damage to nail [facility] Followup: [facility] - With: Jeff Rasmussen MD - When: 2 - 3 days - Reason: Recheck today's complaints, Continuance of care, Re-evaluation by your physician Discharge Instructions: - Discharge Summary Sheet [facility] - Finger Fracture, Adult [facility] Forms: - Medication Reconciliation Form [facility] - Thank You Letter lemuel - Antibiotic Education gena - Prescription Opioid Use [facility] - Work release form tl1 Prescriptions: - orphenadrine citrate 100 mg Oral Tablet Sustained Release - take 1 tablet by ORAL route 2 times per day As needed; 20 tablet; Refills: 0, gena Product Selection Permitted Signatures: Dispatcher [employer] EDVincent Dave MD MD cha Mickail, Joel, PA PA jmm Graham, Kristen, RN RN kg Corrections: (The following items were deleted from the chart) 06/21 22:03 22:01 [place] Meds: None; kg kg
--- NOTE | 2021-06-21 23:14 | ER ---
Nurse's Notes [facility] Name: Stanton Christiansen Age: 60 yrs Sex: Male : 1960 Arrival Date: 06/21/2021 Time: 20:54 Bed Treatment Private MD: Diagnosis: Contusion of left middle finger without damage to nail Presentation: 06/21 21:58 Chief complaint: Patient states: Left third finger pain. Pt fell onto his out reached kg hand at approximately 13:00. Coronavirus screen: Vaccine status: Patient reports receiving the 2nd dose of the covid vaccine. Date June 20, 2021 [employer] Patient reports receiving the 1st dose of the Covid vaccine. Date May 29, 2021 [employer] Client denies travel out of the [place] in the last 14 days. At this time, unable to obtain information related to travel outside the [place] At this time, the client does not indicate any symptoms associated with coronavirus-19. Ebola Screen: Patient negative for fever greater than or equal to 101.5 degrees Fahrenheit, and additional compatible Ebola Virus Disease symptoms Patient denies exposure to infectious person. Patient denies travel to an Ebola-affected area in the 21 days before illness onset. Initial Sepsis Screen: Does the patient meet any 2 criteria? No. Patient's initial sepsis screen is negative. Does the patient have a suspected source of infection? No. Patient's initial sepsis screen is negative. Risk Assessment: Do you want to hurt yourself or someone else? Patient reports no desire to harm self or others. Onset of symptoms was June 21, 2021 at 11:00. 21:58 Method Of Arrival: Ambulatory kg 21:58 Acuity: PATRICK 4 kg Triage Assessment: 22:05 General: Appears in no apparent distress. Behavior is calm, cooperative, appropriate kg for age, quiet. Pain: Complains of pain in dorsal aspect of distal phalanx of left middle finger, dorsal aspect of middle phalanx of left middle finger, dorsal aspect of proximal phalanx of left middle finger, palmar aspect of distal phalanx of left middle finger, palmar aspect of middle phalanx of left middle finger, palmar aspect of proximal phalanx of left middle finger and left middle fingernail. Musculoskeletal: Reports. Injury Description: Deformity sustained to dorsal aspect of distal phalanx of left middle finger, dorsal aspect of middle phalanx of left middle finger, dorsal aspect of proximal phalanx of left middle finger, palmar aspect of distal phalanx of left middle finger, palmar aspect of middle phalanx of left middle finger, palmar aspect of proximal phalanx of left middle finger and left middle fingernail. Historical: - Allergies: 22:01 No Known Allergies; kg - Home Meds: 22:01 metformin Oral [Active]; kg - PMHx: 22:01 Myocardial infarction; Diabetes - NIDDM; kg - PSHx: 22:01 Appendectomy; kg - Immunization history:: Adult Immunizations up to date, Client reports receiving the 2nd dose of the Covid vaccine, Date received: June 20, 2021 [employer] Client reports receiving the 1st dose of the Covid vaccine, May 29, 2021 [employer]. - Social history:: Smoking status: Patient reports the use of cigarette tobacco products, smokes one pack cigarettes per day. Patient uses alcohol, weekly. Screenin:06 Abuse screen: Denies threats or abuse. Denies injuries from another. Nutritional kg screening: No deficits noted. Tuberculosis screening: No symptoms or risk factors identified. Fall Risk Fall in past 12 months (25 points). No secondary diagnosis (0 pts). No IV (0 pts). Ambulatory Aid- None/Bed Rest/Nurse Assist (0 pts). Gait- Normal/Bed Rest/Wheelchair (0 pts) Mental Status- Oriented to own ability (0 pts). Total Bush Fall Scale indicates No Risk (0-24 pts). Assessment: 23:15 General: Appears in no apparent distress. Pain: Complains of pain in left middle tl1 fingernail. Neuro: No deficits noted. Cardiovascular: No deficits noted. Respiratory: Airway is patent. GI: No deficits noted. : No deficits noted. Musculoskeletal: Reports pain in palmar aspect of proximal phalanx of left middle finger. Vital Signs: 21:58 BP 121 / 69; Pulse 76; Resp 20; Temp 98.8(TE); Pulse Ox 93% on R/A; Weight 99.79 kg kg (R); Height 5 ft. 9 in. (175.26 cm) (R); Pain 8/10; 23:22 BP 119 / 75; Pulse 82; Resp 17; Pulse Ox 98% on R/A; Pain 6/10; tl1 21:58 Body Mass Index 32.49 (99.79 kg, 175.26 cm) kg ED Course: 20:54 Patient arrived in ED. wm 22:01 Triage completed. kg 22:06 Patient has correct armband on for positive identification. kg 22:41 Hakeem Dyer PA is PHCP. jmm 22:41 Vincent Shea MD is Attending Physician. jmm 22:53 XRAY Hand LEFT 3 View In Process Unspecified. EDMS 23:13 Jeff Rasmussen MD is Referral Physician. jmm 23:14 No provider procedures requiring assistance completed. Patient did not have IV access tl1 during this emergency room visit. Aluminum finger splint applied to dorsal aspect of distal phalanx of left middle finger and palmar aspect of distal phalanx of left middle finger. 23:22 Jovita Yee, RN is Primary Nurse. tl1 23:23 Splint/sling/ice applied as appropriate. tl1 Administered Medications: No medications were administered Outcome: 23:13 Discharge ordered by MD. m 23:23 Discharged to home ambulatory. tl1 23:23 Condition: good 23:23 Discharge instructions given to patient, Instructed on discharge instructions, follow up and referral plans. medication usage, Demonstrated understanding of instructions, follow-up care, medications, Prescriptions given X 1. 23:23 Patient left the ED. tl1 Signatures: Dispatcher [employer] EDMS Hakeem Dyer PA PA Jovita Angela, RN RN tl1 Ute Salazar RN RN kg Annette Fraga Corrections: (The following items were deleted from the chart) 22:03 22:01 Home Meds: None; kg kg
[2021-06-21 23:30] VITALS: TEMP 98.8
[2021-06-21 23:31] VITALS: BP 119/75; O2SAT 98
--- NOTE | 2021-06-22 08:47 | RAD REPORT ---
EXAM DESCRIPTION: RAD - Hand Left 3 View - 06/21/2021 10:53 pm CLINICAL HISTORY: SWELLING COMPARISON: Hand Left 3 View dated 05/07/2021; Hand Left 3 View dated 07/22/2015 FINDINGS: No acute fracture. No malalignment. Mild degenerative changes are present at the interphal angeal joints. IMPRESSION: No acute osseous abnormality involving the left hand.
== END 2021-06-21 23:23 | disposition home or self-care (01) ==
LOC: ER 20:53
DX: S60.032A Contusion of left middle finger without damage to nail, initial encounter (principal); W19.XXXA Unspecified fall, initial encounter; E11.9 Type 2 diabetes mellitus without complications; F17.210 Nicotine dependence, cigarettes, uncomplicated
CPT/HCPCS: 99283

== ENCOUNTER 2021-11-05 11:03 | Emergency (ER) | payer SELFPAY ==
--- NOTE | 2021-11-05 11:54 | EDPHYS ---
Physician Documentation [facility] Name: Stanton Christiansen Age: 60 yrs Sex: Male : 1960 Arrival Date: 11/05/2021 Time: 11:06 Bed 11 Private MD: ED Physician Lenin Murrieta HPI: 11/05 11:51 This 60 yrs old Black Male presents to ER via Ambulatory with complaints of Groin Pain. pm1 11:51 The patient presents with cyst on groin and discharge from penis. Onset: The pm1 symptoms/episode began/occurred 3 week(s) ago. Modifying factors: The symptoms are alleviated by cyst burst on its own, the symptoms are aggravated by nothing. Associated signs and symptoms: Pertinent negatives: abdominal pain, dysuria, fever. Severity of symptoms: in the emergency department the symptoms have improved. The patient has not experienced similar symptoms in the past. The patient has not recently seen a physician, and does not have an established primary care provider. Historical: - PMHx: 11:20 Diabetes - NIDDM; Myocardial infarction; [facility] - PSHx: 11:20 Appendectomy; [facility] - Immunization history:: Adult Immunizations up to date. - Social history:: Smoking status: Patient reports the use of cigarette tobacco products, smokes one pack cigarettes per day. Patient uses alcohol, occasionally. ROS: 11:51 Constitutional: Negative for fever, chills, and weight loss, Cardiovascular: Negative pm1 for chest pain, palpitations, and edema, Respiratory: Negative for shortness of breath, cough, wheezing, and pleuritic chest pain, Abdomen/GI: Negative for abdominal pain, nausea, vomiting, diarrhea, and constipation, Back: Negative for injury and pain. 11:51 MS/Extremity: Negative for injury and deformity, Skin: Negative for injury, rash, and discoloration. 11:51 Neuro: Negative for headache, weakness, numbness, tingling, and seizure. 11:51 : Positive for penile discharge, cyst on groin, Negative for flank pain, burning with urination, testicular pain swelling. 11:51 All other systems are negative. Exam: 11:51 Constitutional: This is a well developed, well nourished patient who is awake, alert, pm1 and in no acute distress. Head/Face: Normocephalic, atraumatic. 11:51 Back: No spinal tenderness. No costovertebral tenderness. Full range of motion. Skin: Warm, dry with normal turgor. Normal color with no rashes, no lesions, and no evidence of cellulitis. MS/ Extremity: Pulses equal, no cyanosis. Neurovascular intact. Full, normal range of motion. 11:51 Cardiovascular: Exam negative for acute changes, Rate: normal, Rhythm: regular, Pulses: no pulse deficits are appreciated. 11:51 Respiratory: Exam negative for acute changes, respiratory distress, shortness of breath. 11:51 Abdomen/GI: Inspection: abdomen appears normal, Palpation: abdomen is soft and non-tender, in all quadrants. 11:51 : Male external genitalia: swelling and whitish discharge to foreskin consistent with balanitis. 0.5 cm diameter phlegmon present to ventral, base of penis. No fluctuance, surrounding cellulitis, pointing. 11:51 Neuro: Exam negative for acute changes, Orientation: is normal, Mentation: is normal, Motor: is normal, moves all fours. Vital Signs: 11:17 BP 125 / 80; Pulse 90; Resp 18; Temp 97.8; Pulse Ox 98% ; Weight 85.73 kg; Height 5 ft. jh5 9 in. (175.26 cm); Pain 8/10; 11:17 Body Mass Index 27.91 (85.73 kg, 175.26 cm) jh5 MDM: 11:42 Patient medically screened. pm1 11:51 Data reviewed: vital signs. Data interpreted: Pulse oximetry: on room air is 98 %. pm1 Interpretation: normal. 11:51 Counseling: I had a detailed discussion with the patient and/or guardian regarding: the pm1 historical points, exam findings, and any diagnostic results supporting the discharge/admit diagnosis, lab results, the need for outpatient follow up, a family practitioner, to return to the emergency department if symptoms worsen or persist or if there are any questions or concerns that arise at home. 11/05 12:02 Order name: Glucose, Ancillary Testing; Complete Time: 12:10 EDMS 11/05 11:41 Order name: Finger Stick; Complete Time: 11:52 pm1 Administered Medications: No medications were administered Point of Care Testing: Blood Glucose: 11:52 Blood Glucose: 295 mg/dL; iw Ranges: Critical Glucose Levels:Adult <50 mg/dl or >400 mg/dl <40 mg/dl or >180 mg/dl Disposition: 13:21 Co-signature as Attending Physician, Lenin Murrieta MD I agree with the assessment and kdr plan of care. Disposition Summary: 11/05/21 11:53 Discharge Ordered Location: Home pm1 Problem: new pm1 Symptoms: have improved pm1 Condition: Stable pm1 Diagnosis - Balanitis pm1 - Phlegmon on shaft of penis pm1 Followup: pm1 - With: Emergency Department - When: As needed - Reason: Worsening of condition Followup: pm1 - With: Private Physician - When: 2 - 3 days - Reason: Recheck today's complaints, Continuance of care, Re-evaluation by your physician Discharge Instructions: - Discharge Summary Sheet pm1 - Skin Abscess pm1 - Balanitis pm1 Forms: - Medication Reconciliation Form pm1 - Thank You Letter pm1 - Antibiotic Education pm1 - Prescription Opioid Use pm1 Prescriptions: - Clotrimazole 1 % Topical Cream - Apply to affected area 1 application by TOPICAL route every 12 hours; 15 gram; pm1 Refills: 0, Product Selection Permitted - Bactrim DS 800-160 mg Oral Tablet - take 1 tablet by ORAL route every 12 hours for 10 days; 20 tablet; Refills: 0, pm1 Product Selection Permitted - Tramadol 50 mg Oral Tablet - take 1 tablet by ORAL route every 8 hours as needed; 12 tablet; Refills: 0, pm1 Product Selection Permitted Signatures: Dispatcher [employer] Lenin Hernandez MD MD kdr Marinas, Patrick, G[employer] PRINT DEVELOPER AUTOMATIC pm1 Reva Jacobs, RN RN jh5
--- NOTE | 2021-11-05 11:54 | ER ---
Nurse's Notes [facility] Name: Stanton Christiansen Age: 60 yrs Sex: Male : 1960 Arrival Date: 11/05/2021 Time: 11:06 Bed 11 Private MD: Diagnosis: Balanitis;Phlegmon on shaft of penis Presentation: 11/05 11:17 Chief complaint: Patient states: cyst that busted on balls; and since has had pain and jh5 discomfort with white drainage coming from penis. Coronavirus screen: Vaccine status: Patient reports receiving the 2nd dose of the covid vaccine. Client denies travel out of the [place] in the last 14 days. At this time, the client does not indicate any symptoms associated with coronavirus-19. Ebola Screen: Patient negative for fever greater than or equal to 101.5 degrees Fahrenheit, and additional compatible Ebola Virus Disease symptoms Patient denies exposure to infectious person. Patient denies travel to an Ebola-affected area in the 21 days before illness onset. Initial Sepsis Screen: Does the patient meet any 2 criteria? No. Patient's initial sepsis screen is negative. Does the patient have a suspected source of infection? No. Patient's initial sepsis screen is negative. Risk Assessment: Do you want to hurt yourself or someone else? Patient reports no desire to harm self or others. Onset of symptoms was October 22, 2021. 11:17 Method Of Arrival: Ambulatory [facility] 11:17 Acuity: PATRICK 3 jh5 Triage Assessment: 11:20 General: Appears uncomfortable, slender, well groomed, well developed, well nourished, [facility] Behavior is calm, cooperative, appropriate for age. Pain: Complains of pain in ball sack. Historical: - PMHx: 11:20 Diabetes - NIDDM; Myocardial infarction; 5 - PSHx: 11:20 Appendectomy; 5 - Immunization history:: Adult Immunizations up to date. - Social history:: Smoking status: Patient reports the use of cigarette tobacco products, smokes one pack cigarettes per day. Patient uses alcohol, occasionally. Screenin:35 Abuse screen: Denies threats or abuse. Denies injuries from another. Nutritional 5 screening: No deficits noted. Tuberculosis screening: No symptoms or risk factors identified. Fall Risk None identified. Assessment: 11:35 Reassessment: Patient appears in no apparent distress at this time. see triage. 5 Vital Signs: 11:17 BP 125 / 80; Pulse 90; Resp 18; Temp 97.8; Pulse Ox 98% ; Weight 85.73 kg; Height 5 ft. 5 9 in. (175.26 cm); Pain 8/10; 11:17 Body Mass Index 27.91 (85.73 kg, 175.26 cm) [facility] ED Course: 11:06 Patient arrived in ED. ds1 11:20 Triage completed. 5 11:20 Arm band placed on right wrist. 5 11:35 Patient has correct armband on for positive identification. Bed in low position. Call [facility] light in reach. Side rails up X 1. 11:36 Fermin Allred [facility] pm1 11:42 Naina Cosme, PIERRE is Primary Nurse. iw 11:42 Lenin Murrieta MD is Attending Physician. pm1 12:12 No provider procedures requiring assistance completed. Patient did not have IV access iw during this emergency room visit. Administered Medications: No medications were administered Point of Care Testing: Blood Glucose: 11:52 Blood Glucose: 295 mg/dL; iw Ranges: Outcome: 11:53 Discharge ordered by . pm1 12:12 Discharged to home ambulatory. iw 12:12 Condition: good 12:13 Patient left the ED. iw 14:44 Discharge instructions given to patient, Instructed on discharge instructions, follow iw up and referral plans. Demonstrated understanding of instructions, follow-up care, medications, Prescriptions given X 3. Signatures: Abbey Michael ds1 Naina Cosme RN RN Fermin Allred NP NEWS OPERATIONS MANAGER pm1 Reva Jacobs RN RN [facility]
[2021-11-05 12:19] VITALS: BP 125/80; TEMP 97.8; O2SAT 98
== END 2021-11-05 12:13 | disposition home or self-care (01) ==
LOC: ER 11:03
DX: N48.21 Abscess of corpus cavernosum and penis (principal); F17.210 Nicotine dependence, cigarettes, uncomplicated
CPT/HCPCS: 82947; 99282

== ENCOUNTER 2022-03-13 20:00 | Emergency (ER) | payer SELFPAY ==
[2022-03-13 21:16] LABS: Absolute Lymphocytes (CBC) 3.3 K/uL (0.7-4.9); Hematocrit 40.3 % (39.6-49.0); Lymphocytes % 43.9 % (15.3-44.8); MPV 8.9 fL (7.6-11.3); RBC Red Blood Cell Count 4.17 M/uL (4.33-5.43)
[2022-03-13 21:54] LABS: Potassium 3.9 mmol/L (3.5-5.1)
--- NOTE | 2022-03-13 22:04 | RAD REPORT ---
EXAM DESCRIPTION: CT - CTHCSPWOC - 03/13/2022 9:52 pm CLINICAL HISTORY: Head ache and neck pain COMPARISON: CT HEAD CSPINE MPR WO CONTRAST dated 07/22/2015 TECHNIQUE: Axial 5 mm thick images of the head were obtained. Axial 2 mm thick images of the cervic al spine were obtained with sagittal and coronal reconstruction images generated and reviewed. All CT scans are performed using dose optimization technique as appropriate and may include automated exposure control or mA/KV adjustment according to patient size. FINDINGS: No intracranial hemorrhage, mass, edema or acute intracranial finding. No suspicion for ac mercedes infarction. No extra-axial fluid collections. Mastoid air cells and paranasal sinuses are clear. No globe or orbit abnormality seen. No significant atrophy or chronic ischemic change. Ventricles are normal. Cervical body height and alignment are normal. Minimal disc space narrowing C5-6. There are endplate spurs and calcifications along the posterior longitudinal ligament. These changes encroach the centra l canal. There is spinal stenosis to 9 mm at C3-4 with borderline stenosis at C4-5. C5-6 stenosis is present approximately 9 mm. . No fracture or acute bony abnormality. Central canal detail is inheren tly limited. No paraspinal mass or hematoma. IMPRESSION: Negative CT head examination for acute or significant finding. Negative CT cervical spine exam for acute finding. Degenerative changes are present causing multilev el mild central spinal stenosis. Central canal detail is inherently limited on CT imaging.
--- NOTE | 2022-03-13 22:06 | RAD REPORT ---
EXAM DESCRIPTION: RAD - Chest Single View - 03/13/2022 9:51 pm CLINICAL HISTORY: CHEST PAIN COMPARISON: Portable December 2019 TECHNIQUE: AP portable chest image was obtained 03/13/2022 9:51 pm . FINDINGS: No new mass or consolidation. Lung markings match comparison. No significant failure or vo lume overload findings seen. Heart and vasculature are normal. No measurable pleural effusion and no pneumothorax. No acute bony abnormality seen. No acute aortic findings suspected. IMPRESSION: No acute cardiopulmonary process. No significant change from comparison study.
[2022-03-13] MEDS ORDERED: KETOROLAC 30 MG/ML INJ ONE (22:14)
[2022-03-13 23:01] LABS: Troponin High Sensitivity 13.8 pg/mL (<58.9)
--- NOTE | 2022-03-14 00:18 | EDPHYS ---
Physician Documentation [facility] Name: Stanton Christiansen Age: 61 yrs Sex: Male : 1960 Arrival Date: 03/13/2022 Time: 20:04 Bed 6 Private MD: ED Physician Lenin Murrieta HPI: 03/13 20:50 This 61 yrs old Black Male presents to ER via Ambulatory with complaints of Chest Pain kdr > 30 y/o, Right Sided numbness. 03/14 09:25 The patient or guardian reports chest pain that is located primarily in the anterior kdr chest wall, right. Onset: gradually, 1 week(s) ago. The pain radiates to the right arm, the right shoulder. Associated signs and symptoms: The patient has no apparent associated signs or symptoms. The chest pain is described as aching, burning, dull. Duration: The patient or guardian reports a single episode, The patient or guardian reports multiple episodes, that are intermittent, that wax and wane, with no pattern. Severity of pain: At its worst the pain was mild moderate just prior to arrival, in the emergency department the pain is unchanged. The patient has not experienced similar symptoms in the past. The patient has not recently seen a physician. Historical: - Allergies: 03/13 20:47 No Known Allergies; as6 - Home Meds: 20:47 None [Active]; as6 - PMHx: 20:47 Diabetes - NIDDM; Myocardial infarction; as6 - PSHx: 20:47 Appendectomy; as6 - Immunization history:: Client reports receiving the 2nd dose of the Covid vaccine. - Social history:: Smoking status: Patient reports the use of cigarette tobacco products, smokes one-half pack cigarettes per day. ROS: 03/14 09:25 Constitutional: Negative for fever, chills, and weight loss, Eyes: Negative for injury, kdr pain, redness, and discharge, Neck: Negative for injury, pain, and swelling, Cardiovascular: Negative for chest pain, palpitations, and edema, Respiratory: Negative for shortness of breath, cough, wheezing, and pleuritic chest pain, Abdomen/GI: Negative for abdominal pain, nausea, vomiting, diarrhea, and constipation, Back: Negative for injury and pain, : Negative for injury, bleeding, discharge, and swelling, MS/Extremity: Negative for injury and deformity, Skin: Negative for injury, rash, and discoloration, Neuro: Negative for headache, weakness, numbness, tingling, and seizure activity. Exam: 09:25 Constitutional: This is a well developed, well nourished patient who is awake, alert, kdr and in no acute distress. Head/Face: Normocephalic, atraumatic. Eyes: Pupils equal round and reactive to light, extra-ocular motions intact. Lids and lashes normal. Conjunctiva and sclera are non-icteric and not injected. Cornea within normal limits. Periorbital areas with no swelling, redness, or edema. Neck: Trachea midline, no thyromegaly or masses palpated, and no cervical lymphadenopathy. Supple, full range of motion without nuchal rigidity, or vertebral point tenderness. No Meningismus. Chest/axilla: Normal chest wall appearance and motion. Nontender with no deformity. No lesions are appreciated. Cardiovascular: Regular rate and rhythm with a normal S1 and S2. No gallops, murmurs, or rubs. Normal PMI, no JVD. No pulse deficits. Respiratory: Lungs have equal breath sounds bilaterally, clear to auscultation and percussion. No rales, rhonchi or wheezes noted. No increased work of breathing, no retractions or nasal flaring. Abdomen/GI: Soft, non-tender, with normal bowel sounds. No distension or tympany. No guarding or rebound. No evidence of tenderness throughout. Back: No spinal tenderness. No costovertebral tenderness. Full range of motion. Skin: Warm, dry with normal turgor. Normal color with no rashes, no lesions, and no evidence of cellulitis. MS/ Extremity: Pulses equal, no cyanosis. Neurovascular intact. Full, normal range of motion. Neuro: Awake and alert, GCS 15, oriented to person, place, time, and situation. Cranial nerves II-XII grossly intact. Motor strength 5/5 in all extremities. Sensory grossly intact. Cerebellar exam normal. Normal gait. Psych: Awake, alert, with orientation to person, place and time. Behavior, mood, and affect are within normal limits. Vital Signs: 03/13 20:45 BP 120 / 69; Pulse 73; Resp 18 S; Temp 98.5(O); Pulse Ox 99% on R/A; Weight 85.28 kg as6 (R); Height 5 ft. 10 in. (177.80 cm) (R); Pain 8/10; 23:07 BP 147 / 75; Pulse 73; Resp 21; Pulse Ox 97% on R/A; sm5 03/14 00:25 BP 151 / 76; Pulse 79; Resp 20 S; Pulse Ox 99% on R/A; as6 03/13 20:45 Body Mass Index 26.97 (85.28 kg, 177.80 cm) as6 MDM: 00:17 Patient medically screened. kdr 09:25 Data reviewed: vital signs, nurses notes, lab test result(s), radiologic studies. kdr Counseling: I had a detailed discussion with the patient and/or guardian regarding: the historical points, exam findings, and any diagnostic results supporting the discharge/admit diagnosis, lab results, radiology results, the need for outpatient follow up. 03/13 20:49 Order name: Basic Metabolic Panel; Complete Time: 23:44 kdr 03/13 20:49 Order name: CBC with Diff; Complete Time: 23:44 kdr 03/13 20:49 Order name: Troponin HS; Complete Time: 23:44 kdr 03/13 20:49 Order name: XRAY Chest (1 view); Complete Time: 23:44 kdr 03/13 21:35 Order name: CT Head C Spine; Complete Time: 23:44 kdr 03/13 20:49 Order name: EKG; Complete Time: 20:50 kdr 03/13 20:49 Order name: Cardiac monitoring; Complete Time: 21:04 [facility] 03/13 20:49 Order name: EKG - Nurse/Tech; Complete Time: 21:04 kdr 03/13 20:49 Order name: IV Saline Lock; Complete Time: 21:04 kdr 03/13 20:49 Order name: Labs collected and sent; Complete Time: 21:05 kdr 03/13 20:49 Order name: O2 Per Protocol; Complete Time: 21:05 kdr 03/13 20:49 Order name: O2 Sat Monitoring; Complete Time: 21:05 kdr Administered Medications: 03/13 22:12 Drug: Ketorolac 15 mg Route: IVP; Site: right antecubital; 5 03/14 00:25 Follow up: Response: No adverse reaction as6 Disposition Summary: 03/14/22 00:17 Discharge Ordered Location: Home kdr Problem: new kdr Symptoms: have improved kdr Condition: Stable kdr Diagnosis - Musculoskeletal pain, neck pain, right-sided body pain kdr Followup: kdr - With: Private Physician - When: 2 - 3 days - Reason: If symptoms return, Further diagnostic work-up, Recheck today's complaints, Continuance of care, Re-evaluation by your physician Discharge Instructions: - Discharge Summary Sheet kdr - Musculoskeletal Pain kdr Forms: - Medication Reconciliation Form kdr - Thank You Letter kdr Prescriptions: - Ibuprofen 600 mg Oral Tablet - take 1 tablet by ORAL route every 6 hours As needed take with food; 30 tablet; kdr Refills: 0, Product Selection Permitted Signatures: Dispatcher [employer] Lenin Hernandez MD MD kdr Alex Foote RN RN as6 Lawanda Mcgarry RN RN sm5
--- NOTE | 2022-03-14 00:18 | ER ---
Nurse's Notes [facility] Name: Stanton Christiansen Age: 61 yrs Sex: Male : 1960 Arrival Date: 03/13/2022 Time: 20:04 Bed 6 Private MD: Diagnosis: Musculoskeletal pain, neck pain, right-sided body pain Presentation: 03/13 20:45 Chief complaint: Patient states: right sided chest/arm pain x1 week. Coronavirus as6 screen: At this time, the client does not indicate any symptoms associated with coronavirus-19. Ebola Screen: No symptoms or risks identified at this time. Initial Sepsis Screen: Does the patient meet any 2 criteria? No. Patient's initial sepsis screen is negative. Does the patient have a suspected source of infection? No. Patient's initial sepsis screen is negative. Risk Assessment: Do you want to hurt yourself or someone else? Patient reports no desire to harm self or others. Onset of symptoms was March 06, 2022. 20:45 Method Of Arrival: Ambulatory as6 20:45 Acuity: PATRICK 3 as6 Historical: - Allergies: 20:47 No Known Allergies; as6 - Home Meds: 20:47 None [Active]; as6 - PMHx: 20:47 Diabetes - NIDDM; Myocardial infarction; as6 - PSHx: 20:47 Appendectomy; as6 - Immunization history:: Client reports receiving the 2nd dose of the Covid vaccine. - Social history:: Smoking status: Patient reports the use of cigarette tobacco products, smokes one-half pack cigarettes per day. Screenin:03 Abuse screen: Denies threats or abuse. Denies injuries from another. Nutritional sm5 screening: No deficits noted. Tuberculosis screening: No symptoms or risk factors identified. Fall Risk None identified. Assessment: 21:03 General: Appears in no apparent distress. Behavior is cooperative, appropriate for age. sm5 Pain: Complains of pain in chest Pain does not radiate. Pain began 2 weeks ago. Neuro: No deficits noted. Liu Agitation-Sedation Scale (RASS): 0 - Alert and Calm Level of Consciousness is awake, alert, obeys commands, Oriented to person, place, time, situation. Cardiovascular: Reports chest pain, Capillary refill < 3 seconds Patient's skin is warm and dry. Respiratory: No deficits noted. Airway is patent Trachea midline Respiratory effort is even, unlabored. 22:00 Reassessment: No changes from previously documented assessment. Patient and/or family sm5 updated on plan of care and expected duration. Pain level reassessed. 23:09 Reassessment: Patient and/or family updated on plan of care and expected duration. Pain sm5 level reassessed. Patient is alert, oriented x 3, equal unlabored respirations, skin warm/dry/pink. Vital Signs: 20:45 BP 120 / 69; Pulse 73; Resp 18 S; Temp 98.5(O); Pulse Ox 99% on R/A; Weight 85.28 kg as6 (R); Height 5 ft. 10 in. (177.80 cm) (R); Pain 8/10; 23:07 BP 147 / 75; Pulse 73; Resp 21; Pulse Ox 97% on R/A; sm5 03/14 00:25 BP 151 / 76; Pulse 79; Resp 20 S; Pulse Ox 99% on R/A; as6 03/13 20:45 Body Mass Index 26.97 (85.28 kg, 177.80 cm) as6 ED Course: 03/13 20:04 Patient arrived in ED. bp1 20:47 Triage completed. as6 20:48 Arm band placed on. as6 20:49 Lenin Murrieta MD is Attending Physician. kdr 20:52 Ellen Bhatia, PIERRE is Primary Nurse. lp1 21:03 Inserted saline lock: 20 gauge in right antecubital area, using aseptic technique. sm5 Blood collected. Patient maintains SpO2 saturation greater than 95% on room air. 21:04 Patient has correct armband on for positive identification. Bed in low position. Call sm5 light in reach. Side rails up X2. Client placed on continuous cardiac and pulse oximetry monitoring. NIBP monitoring applied. 21:05 Basic Metabolic Panel Sent. sm5 21:05 CBC with Diff Sent. sm5 21:05 Troponin HS Sent. sm5 21:53 XRAY Chest (1 view) In Process Unspecified. EDMS 21:53 CT Head C Spine In Process Unspecified. EDMS 03/14 00:25 No provider procedures requiring assistance completed. IV discontinued, intact, as6 bleeding controlled, No redness/swelling at site. Pressure dressing applied. Administered Medications: 05/24 22:12 Drug: Ketorolac 15 mg Route: IVP; Site: right antecubital; sm5 03/14 00:25 Follow up: Response: No adverse reaction as6 Medication: 00:26 VIS not applicable for this client. as6 Outcome: 00:17 Discharge ordered by . kdr 00:26 Discharged to home ambulatory. as6 00:26 Condition: stable 00:26 Discharge instructions given to patient, Instructed on discharge instructions, follow up and referral plans. medication usage, Demonstrated understanding of instructions, follow-up care, medications, Prescriptions given X 1. 00:26 Patient left the ED. as6 Signatures: Dispatcher [employer] EDMS Lenin Murrieta MD MD kdr Pena, Laura RN RN lp1 Ariella Dominguez Ashby, RN RN as6 Lawanda Mcgarry RN RN sm5
[2022-03-14 00:36] VITALS: TEMP 98.5
[2022-03-14 00:39] VITALS: BP 151/76; O2SAT 99
--- NOTE | 2022-03-14 12:33 | EKG ---
Test Date: 2022-03-13 Test Time: 21:01:01 Child Nurse: CAS MEASUREMENT RESULTS: Intervals: Rate: 68 OH: 220 QRSD: 90 QT: 388 QTc: 412 [place]: P: 63 OH: 220 QRS: 90 T: 201 INTERPRETIVE STATEMENTS: Sinus rhythm with 1st degree AV block Rightward axis T wave abnormality, consider inferolateral ischemia Abnormal ECG Compared to ECG 09/25/2018 05:40:30 First degree AV block now present Right-axis deviation now present Possible ischemia now present T-wave abnormality still present Electronically Signed On 03-14-22 12:31:35 CDT by Yordy Arzola
== END 2022-03-14 00:26 | disposition home or self-care (01) ==
LOC: ER 20:00
DX: M79.18 Myalgia, other site (principal); R07.9 Chest pain, unspecified; E11.9 Type 2 diabetes mellitus without complications; I25.2 Old myocardial infarction; F17.210 Nicotine dependence, cigarettes, uncomplicated
CPT/HCPCS: 36415; 70450; 71045; 72125; 80048; 84484; 85025; 93005; 96374; 99284

== ENCOUNTER 2022-11-20 09:48 | Emergency (ER) | payer OTHER, SELFPAY ==
[2022-11-20] MEDS ORDERED: KETOROLAC 30 MG/ML INJ ONE (10:11)
[2022-11-20] MEDS ORDERED: CYCLOBENZAPRINE 10 MG TAB ONE (10:11)
--- NOTE | 2022-11-20 10:36 | RAD REPORT ---
EXAM DESCRIPTION: Shoulder Right 2 View - 11/20/2022 10:20 am CLINICAL HISTORY: PAIN, persistent after fall 2 months earlier COMPARISON: Chest Single View dated 03/13/2022; Chest Single View dated 01/12/2020 TECHNIQUE: Internal and external rotation views of the right shoulder were obtained. FINDINGS: No acute or subacute fracture changes are present. There is no dislocation. Curvilinear sc lerotic changes are present in the humeral head are not clearly different from the 2020 examination. Left shoulder was partially imaged on the comparison 2020 chest examination and similar sclerotic liyah nges are seen in the left humeral head. AC joint degenerative changes are present. Small inferiorly directed clavicle spur is seen. More prom inent superiorly directed clavicle spur seen. Punctate calcification seen near the humeral head on th e internal rotation view could be a post trauma muscle or tendon calcification. IMPRESSION: No acute or subacute fracture change. No dislocation. Degenerative changes are present involving the humeral head and AC joint not substantially different from 2020 image. Continued unexplained right shoulder pain can be further addressed with outpatient MRI imaging.
--- NOTE | 2022-11-20 10:43 | EDPHYS ---
Physician Documentation [facility] Name: Stanton Christiansen Age: 62 yrs Sex: Male : 1960 Arrival Date: 11/20/2022 Time: 09:50 Bed 11 Private MD: ED Physician Silvestre Avila HPI: 11/20 10:00 This 62 yrs old Black Male presents to ER via Ambulatory with complaints of Shoulder jh7 Pain - right. 10:00 The patient or guardian complains of an injury, pain. jh7 10:45 right shoulder. Context: The problem was sustained on a street or driveway, resulted jh7 from a fall, From the back of a truck, The patient experiences decreased range of motion, when attempts to raise arm, The patient reports no obvious deformity. Onset: The symptoms/episode began/occurred 2 month(s) ago. Associated signs and symptoms: Pertinent negatives: abdominal pain, chest pain, dyspnea, neck pain, shortness of breath. Patient reports right shoulder pain for 2 months after falling off the back of a truck. Stated that the pain has not worsened but is still reproducible with abduction beyond 90 degrees and lifting weights.. Historical: - Allergies: 10:01 No Known Allergies; vg1 - Home Meds: 10:01 Metformin Oral [Active]; Aspirin Oral [Active]; vg1 - PMHx: 10:01 Diabetes - NIDDM; Myocardial infarction; vg1 - PSHx: 10:01 Appendectomy; vg1 - Immunization history:: Client reports receiving the 2nd dose of the Covid vaccine. - Social history:: Smoking status: Patient reports the use of cigarette tobacco products, smokes one-half pack cigarettes per day. ROS: 10:45 Constitutional: Negative for fever, chills, and weight loss, Eyes: Negative for injury, jh7 pain, redness, and discharge, ENT: Negative for injury, pain, and discharge, Cardiovascular: Negative for chest pain, palpitations, and edema, Respiratory: Negative for shortness of breath, cough, wheezing, and pleuritic chest pain, Abdomen/GI: Negative for abdominal pain, nausea, vomiting, diarrhea, and constipation, Back: Negative for injury and pain, Skin: Negative for injury, rash, and discoloration, Neuro: Negative for headache, weakness, numbness, tingling, and seizure. 10:45 MS/extremity: Positive for pain, Negative for swelling, tenderness. 10:45 All other systems are negative. Exam: 10:45 Constitutional: This is a well developed, well nourished patient who is awake, alert, jh7 and in no acute distress. Head/Face: Normocephalic, atraumatic. Neck: Trachea midline, no thyromegaly or masses palpated, and no cervical lymphadenopathy. Supple, full range of motion without nuchal rigidity, or vertebral point tenderness. No Meningismus. Cardiovascular: Regular rate and rhythm with a normal S1 and S2. No gallops, murmurs, or rubs. Normal PMI, no JVD. No pulse deficits. Respiratory: Lungs have equal breath sounds bilaterally, clear to auscultation and percussion. No rales, rhonchi or wheezes noted. No increased work of breathing, no retractions or nasal flaring. Abdomen/GI: Soft, non-tender, with normal bowel sounds. No distension or tympany. No guarding or rebound. No evidence of tenderness throughout. Back: No spinal tenderness. No costovertebral tenderness. Full range of motion. Skin: Warm, dry with normal turgor. Normal color with no rashes, no lesions, and no evidence of cellulitis. Neuro: Awake and alert, GCS 15, oriented to person, place, time, and situation. Sensory grossly intact. Normal gait. 10:45 Musculoskeletal/extremity: ROM: limited active range of motion, in the right shoulder, Limited abduction beyond 90 degrees secondary to pain. Pain is experienced in both the anterior and posterior shoulder. There is no bruising, swelling, or tenderness to palpation.. Vital Signs: 09:59 BP 122 / 72; Pulse 70; Resp 16; Temp 97.3(TE); Pulse Ox 100% on R/A; Weight 77.11 kg vg1 (R); Height 5 ft. 9 in. (175.26 cm); Pain 8/10; 10:48 BP 120 / 78; Pulse 70; Resp 16; Pulse Ox 98% on R/A; vg1 09:59 Body Mass Index 25.10 (77.11 kg, 175.26 cm) vg1 MDM: 09:51 Patient medically screened. [facility] 10:42 Differential diagnosis: DJD, tendonitis, Shoulder sprain, shoulder strain, bursitis, jh7 shoulder impingement. Data reviewed: vital signs, nurses notes, radiologic studies, plain films. Independent interpretation of the following test(s) in the Emergency Department X-Ray: My interpretation is No acute findings. Counseling: I had a detailed discussion with the patient and/or guardian regarding: the historical points, exam findings, and any diagnostic results supporting the discharge/admit diagnosis, the need for outpatient follow up, a orthopedic surgeon, to return to the emergency department if symptoms worsen or persist or if there are any questions or concerns that arise at home. Special discussion: Monitor blood glucose closely while taking steroids. 11/20 10:05 Order name: XRAY Shoulder RIGHT 2 view; Complete Time: 10:40 [facility] Administered Medications: 10:09 Drug: Flexeril (cyclobenzaprine) 10 mg Route: PO; vg1 10:50 Follow up: Response: No adverse reaction vg1 10:12 Drug: Ketorolac 60 mg Route: IM; Site: left gluteus; vg1 10:50 Follow up: Response: No adverse reaction; Marked relief of symptoms vg1 Disposition: 18:07 Co-signature as Attending Physician, Silvestre Avila MD I reviewed the patient's care rn provided by the Advanced Practice Provider and agree with the diagnosis and treatment plan. Disposition Summary: 11/20/22 10:42 Discharge Ordered Location: Home [facility] Problem: chronic [facility] Symptoms: are unchanged [facility] Condition: Stable [facility] Diagnosis - Other sprain of right shoulder joint [facility] Followup: [facility] - With: Private Physician - When: 2 - 3 days - Reason: Recheck today's complaints Discharge Instructions: - Discharge Summary Sheet [facility] - Shoulder Sprain [facility] Forms: - Medication Reconciliation Form [facility] - Thank You Letter [facility] Prescriptions: - Zanaflex 4 mg Oral Tablet - take 1 tablet by ORAL route every 8 hours As needed; 20 tablet; Refills: 0, jh7 Product Selection Permitted - Medrol (Jaspreet) 4 mg Oral Tablets, Dose Pack - take 1 tablet by ORAL route as directed - follow package instructions; 1 jh7 packet; Refills: 0, Product Selection Permitted Signatures: Dispatcher [employer] EDSilvestre Diaz MD MD rn Garcia, Victoria, RN RN vg1 Cassie Mederos FNP [employer] SERVICES PROFESSIONAL [facility] Corrections: (The following items were deleted from the chart) 10:47 10:00 The patient or guardian complains of an injury, pain, jh7 jh7
--- NOTE | 2022-11-20 10:43 | ER ---
Nurse's Notes [facility] Name: Stanton Christiansen Age: 62 yrs Sex: Male : 1960 Arrival Date: 11/20/2022 Time: 09:50 Bed 11 Private MD: Diagnosis: Other sprain of right shoulder joint Presentation: 11/20 09:59 Chief complaint: Patient states: Fell off a truck about two months ago onto Right vg1 shoulder, states shooting pain from shoulder down right arm and up the right side of neck. Coronavirus screen: Vaccine status: Patient reports receiving the 2nd dose of the covid vaccine. Client denies travel out of the [place] in the last 14 days. Ebola Screen: Patient negative for fever greater than or equal to 101.5 degrees Fahrenheit, and additional compatible Ebola Virus Disease symptoms. Initial Sepsis Screen: Does the patient meet any 2 criteria? No. Patient's initial sepsis screen is negative. Does the patient have a suspected source of infection? No. Patient's initial sepsis screen is negative. Risk Assessment: Do you want to hurt yourself or someone else? Patient reports no desire to harm self or others. Onset of symptoms was August 2022. 09:59 Method Of Arrival: Ambulatory vg1 09:59 Acuity: PATRICK 4 vg1 Triage Assessment: 10:01 General: Appears uncomfortable, Behavior is calm, cooperative. Pain: Complains of pain vg1 in right arm, right shoulder Pain currently is 8 out of 10 on a pain scale. Aggravated by increased activity. Neuro: Level of Consciousness is awake, alert, obeys commands, Oriented to person, place, time, situation. Musculoskeletal: Circulation, motion, and sensation intact. Historical: - Allergies: 10:01 No Known Allergies; vg1 - Home Meds: 10:01 Metformin Oral [Active]; Aspirin Oral [Active]; vg1 - PMHx: 10:01 Diabetes - NIDDM; Myocardial infarction; vg1 - PSHx: 10:01 Appendectomy; vg1 - Immunization history:: Client reports receiving the 2nd dose of the Covid vaccine. - Social history:: Smoking status: Patient reports the use of cigarette tobacco products, smokes one-half pack cigarettes per day. Screenin:48 [facility] ED Fall Risk Assessment (Adult) History of falling in the last 3 months, vg1 including since admission Yes- single mechanical fall (1 pt) Confusion or Disorientation No (0 pts) Intoxicated or Sedated No (0 pts) Impaired Gait No (0 pts) Mobility Assist Device Used No (0 pt) Altered Elimination No (0 pt) Score/Fall Risk Level 0 - 2 = Low Risk Oriented to surroundings, Maintained a safe environment, Educated pt \T\ family on fall prevention, incl call for assistance when getting out of bed, Assessed \T\ reinforced patient's understanding of fall precautions. Abuse screen: Denies threats or abuse. Nutritional screening: No deficits noted. Tuberculosis screening: No symptoms or risk factors identified. Assessment: 10:48 Reassessment: Patient appears in no apparent distress at this time. Patient and/or vg1 family updated on plan of care and expected duration. Pain level reassessed. Patient is alert, oriented x 3, equal unlabored respirations, skin warm/dry/pink. rated right shoulder pain 2/10 Patient states feeling better. Vital Signs: 09:59 BP 122 / 72; Pulse 70; Resp 16; Temp 97.3(TE); Pulse Ox 100% on R/A; Weight 77.11 kg vg1 (R); Height 5 ft. 9 in. (175.26 cm); Pain 8/10; 10:48 BP 120 / 78; Pulse 70; Resp 16; Pulse Ox 98% on R/A; vg1 09:59 Body Mass Index 25.10 (77.11 kg, 175.26 cm) vg1 ED Course: 09:50 Patient arrived in ED. am2 09:51 Cassie Mederos FNP [facility] 09:51 Silvestre Avila MD is Attending Physician. 7 10:01 Triage completed. vg1 10:01 Arm band placed on. vg1 10:05 Nel Florian, RN is Primary Nurse. vg1 10:05 Patient has correct armband on for positive identification. Bed in low position. Call vg1 light in reach. 10:05 No provider procedures requiring assistance completed. Patient did not have IV access vg1 during this emergency room visit. 10:21 XRAY Shoulder RIGHT 2 view In Process Unspecified. EDMS Administered Medications: 10:09 Drug: Flexeril (cyclobenzaprine) 10 mg Route: PO; vg1 10:50 Follow up: Response: No adverse reaction vg1 10:12 Drug: Ketorolac 60 mg Route: IM; Site: left gluteus; vg1 10:50 Follow up: Response: No adverse reaction; Marked relief of symptoms vg1 Medication: 10:49 VIS not applicable for this client. vg1 Outcome: 10:05 Discharged to home ambulatory. vg1 10:05 Condition: good 10:05 Discharge instructions given to patient, Instructed on discharge instructions, follow up and referral plans. medication usage, Demonstrated understanding of instructions, follow-up care, medications, Prescriptions given X 2. 10:42 Discharge ordered by MD. bowen 10:50 Patient left the ED. vg1 Signatures: Dispatcher [employer] EDCinda Xavier Victoria, RN RN vg1 Cassie Mederos FNP ACADEMIC SERVICES COORDINATOR 7
[2022-11-20 10:55] VITALS: TEMP 97.3
[2022-11-20 10:56] VITALS: BP 120/78; O2SAT 98
== END 2022-11-20 10:50 | disposition home or self-care (01) ==
LOC: ER 09:48
DX: S43.491A Other sprain of right shoulder joint, initial encounter (principal)

== ENCOUNTER 2023-08-06 19:44 | Emergency (ER) | payer OTHER ==
--- NOTE | 2023-08-06 20:44 | ER ---
Nurse's Notes [facility] Name: Stanton Christiansen Age: 62 yrs Sex: Male : 1960 Arrival Date: 08/06/2023 Time: 19:44 Bed DIS3 Private MD: Diagnosis: Puncture wound without foreign body of foot Presentation: 08/06 20:18 Chief complaint: Patient states: he stepped on a nail with his right foot. bleeding is ap3 controlled at this time. patient currently rates pain as a 5/10 on the pain scale. Coronavirus screen: At this time, the client does not indicate any symptoms associated with coronavirus-19. Ebola Screen: No symptoms or risks identified at this time. Initial Sepsis Screen: Does the patient meet any 2 criteria? No. Patient's initial sepsis screen is negative. Does the patient have a suspected source of infection? No. Patient's initial sepsis screen is negative. Risk Assessment: Do you want to hurt yourself or someone else? Patient reports no desire to harm self or others. Onset of symptoms was August 06, 2023. 20:18 Method Of Arrival: Ambulatory ap3 20:18 Acuity: PATRICK 4 ap3 Triage Assessment: 20:19 General: Appears in no apparent distress. Behavior is calm, cooperative, appropriate ap3 for age. Pain: Complains of pain in right foot Pain currently is 5 out of 10 on a pain scale. Pain began suddenly. Neuro: Level of Consciousness is awake, alert, obeys commands, Oriented to person, place, time, situation. Cardiovascular: Patient's skin is warm and dry. Respiratory: Airway is patent Respiratory effort is even, unlabored, Respiratory pattern is regular, symmetrical. Historical: - Allergies: 20:19 No Known Allergies; ap3 - PMHx: 20:19 Diabetes - NIDDM; Myocardial infarction; ap3 - PSHx: 20:19 Appendectomy; ap3 - Immunization history:: Client reports receiving the 2nd dose of the Covid vaccine. - Social history:: Smoking status: Patient reports the use of cigarette tobacco products, smokes one pack cigarettes per day. Screenin:20 [facility] ED Fall Risk Assessment (Adult) History of falling in the last 3 months, ap3 including since admission No falls in past 3 months (0 pts). Abuse screen: Denies threats or abuse. Nutritional screening: No deficits noted. Tuberculosis screening: No symptoms or risk factors identified. Vital Signs: 20:18 BP 137 / 77; Pulse 72; Resp 17; Temp 97.9; Pulse Ox 100% ; Weight 81.65 kg; Pain 5/10; ap3 20:18 Pain Scale: Adult ap3 ED Course: 19:49 Patient arrived in ED. jj6 20:13 Tom Khan DO is Attending Physician. ms3 20:19 Triage completed. ap3 20:20 Arm band placed on right wrist. ap3 20:43 Geoffrey Otoole DO is Referral Physician. ms3 20:44 Alex Foote, RN is Primary Nurse. as6 20:48 Bed in low position. Call light in reach. Provided Education on: follow up. as6 20:49 No provider procedures requiring assistance completed. Patient did not have IV access as6 during this emergency room visit. Administered Medications: 20:48 Drug: Boostrix Tdap IM 0.5 ml IM once; as a single dose Route: IM; Site: left deltoid; as6 20:49 Follow up: Response: (VIS) Vaccine information sheet provided today. Questions and/or as6 concerns addressed. VIS edition date: May 26, 2021.; No adverse reaction 20:48 Drug: Ciprofloxacin PO 500 mg PO once Route: PO; as6 20:49 Follow up: Response: No adverse reaction as6 Medication: 20:49 VIS not applicable for this client. as6 Outcome: 20:43 Discharge ordered by MD. ms3 20:49 Discharged to home ambulatory, as6 20:49 Condition: stable 20:49 Discharge instructions given to patient, Instructed on discharge instructions, follow up and referral plans. medication usage, Demonstrated understanding of instructions, follow-up care, medications, Prescriptions given X 1, 20:56 Patient left the ED. as6 Signatures: Cinda Stanford RN RN ap3 Tom Khan DO DO ms3 Vianney Cassie jj6 Alex Foote, PIERRE RN as6
--- NOTE | 2023-08-06 20:44 | EDPHYS ---
Physician Documentation [facility] Name: Stanton Christiansen Age: 62 yrs Sex: Male : 1960 Arrival Date: 08/06/2023 Time: 19:44 Bed DIS3 Private MD: ED Physician Tom Khan HPI: 08/06 20:43 This 62 yrs old Black Male presents to ER via Ambulatory with complaints of Puncture ms3 Wound To Foot. 20:43 62-year-old male with past medical history of diabetes presents to the emergency ms3 department after a nail punctured through his shoe into the plantar surface of his right foot at 3 PM. Patient states his discomfort is a burning rated a 5/10. Patient denies retained foreign body as the nail came out of his foot.. Historical: - Allergies: 20:19 No Known Allergies; ap3 - PMHx: 20:19 Diabetes - NIDDM; Myocardial infarction; ap3 - PSHx: 20:19 Appendectomy; ap3 - Immunization history:: Client reports receiving the 2nd dose of the Covid vaccine. - Social history:: Smoking status: Patient reports the use of cigarette tobacco products, smokes one pack cigarettes per day. ROS: 20:43 Constitutional: Negative for fever, and chills. Neck: Negative for injury, pain, and ms3 swelling, Cardiovascular: Negative for chest pain, and palpitations. Respiratory: Negative for shortness of breath, cough, wheezing, and pleuritic chest pain, Abdomen/GI: Negative for abdominal pain, nausea, vomiting, diarrhea, and constipation, 20:43 MS/extremity: Positive for Pain and plantar surface of right, 20:43 All other systems are negative, Exam: 20:43 Constitutional: This is a well developed, well nourished patient who is awake, alert, ms3 and in no acute distress. Head/Face: Normocephalic, atraumatic. Neck: Trachea midline, no cervical lymphadenopathy. Supple, full range of motion without nuchal rigidity, or vertebral point tenderness. No Meningismus. Chest/axilla: Normal chest wall appearance and motion. Nontender with no deformity. Cardiovascular: Regular rate and rhythm with a normal S1 and S2. No gallops, murmurs, or rubs. Normal PMI, no JVD. No pulse deficits. Respiratory: Lungs have equal breath sounds bilaterally, clear to auscultation and percussion. No rales, rhonchi or wheezes noted. No increased work of breathing, no retractions or nasal flaring. Abdomen/GI: Soft, non-tender, with normal bowel sounds. No distension or tympany. No guarding or rebound. No evidence of tenderness throughout. 20:43 Skin: No puncture wound visualized in plantar surface of right foot. Patient states he did shower after the incident.. Vital Signs: 20:18 BP 137 / 77; Pulse 72; Resp 17; Temp 97.9; Pulse Ox 100% ; Weight 81.65 kg; Pain 5/10; ap3 20:18 Pain Scale: Adult ap3 MDM: 20:26 Patient medically screened. ms3 20:43 Differential diagnosis: penetrating trauma. Data reviewed: vital signs, nurses notes, ms3 and as a result, I will discharge patient. I considered the following discharge prescriptions or medication management in the emergency department Medications were administered in the Emergency Department. See MAR. Care significantly affected by the following chronic conditions: Diabetes. Counseling: I had a detailed discussion with the patient and/or guardian regarding the historical points, exam findings, and any diagnostic results supporting the discharge/admit diagnosis, the need for outpatient follow up, to return to the emergency department if symptoms worsen or persist or if there are any questions or concerns that arise at home. Special discussion: I discussed with the patient/guardian in detail that at this point there is no indication for admission to the hospital. It is understood, however, that if the symptoms persist or worsen the patient needs to return immediately for re-evaluation. ED course: Discussed side effects of ciprofloxacin with patient. Patient to follow-up with primary care physician in 2 to 3 days. Patient understands and agrees with plan. All questions were answered. Return precautions discussed include worsening symptoms, or any other concerns. Administered Medications: 20:48 Drug: Boostrix Tdap IM 0.5 ml IM once; as a single dose Route: IM; Site: left deltoid; as6 20:49 Follow up: Response: (VIS) Vaccine information sheet provided today. Questions and/or as6 concerns addressed. VIS edition date: May 26, 2021.; No adverse reaction 20:48 Drug: Ciprofloxacin PO 500 mg PO once Route: PO; as6 20:49 Follow up: Response: No adverse reaction as6 Disposition Summary: 08/06/23 20:43 Discharge Ordered Notes: Location: Home ms3 Condition: Stable ms3 Diagnosis - Puncture wound without foreign body of foot ms3 Followup: ms3 - With: Geoffrey Otoole DO - When: 2 - 3 days - Reason: Recheck today's complaints Discharge Instructions: - Discharge Summary Sheet ms3 - Puncture Wound, Visc-[id number] ms3 Forms: - Medication Reconciliation Form ms3 - Thank You Letter ms3 - Antibiotic Education ms3 - Prescription Opioid Use ms3 - Patient Portal Instructions ms3 - Leadership Thank You Letter ms3 Prescriptions: - Cipro 500 mg Oral Tablet - take 1 tablet ORAL route every 12 hours for 7 days; 14 tablet; Refills: 0, ms3 Product Selection Permitted Signatures: Cinda Stanford, RN RN ap3 Tom Khan DO DO ms3 Alex Foote RN RN as6
[2023-08-06] MEDS ORDERED: CIPROFLOXACIN HCL 500 MG TAB ONE (20:58)
[2023-08-06] MEDS ORDERED: TDAP (DIPHTH,PERTUSS(ACELL),TET VAC) 0.5 ML VIAL IMVAC ONE (20:59)
[2023-08-06 22:07] VITALS: BP 137/77; TEMP 97.9; O2SAT 100
== END 2023-08-06 20:56 | disposition home or self-care (01) ==
LOC: ER 19:44
DX: S91.331A Puncture wound without foreign body, right foot, initial encounter (principal); E11.9 Type 2 diabetes mellitus without complications; F17.210 Nicotine dependence, cigarettes, uncomplicated

== ENCOUNTER 2023-08-17 16:16 | Emergency (ER) | payer OTHER ==
--- NOTE | 2023-08-17 18:15 | RAD REPORT ---
EXAM DESCRIPTION: RAD - Chest Single View - 08/17/2023 6:07 pm CLINICAL HISTORY: COUGH COMPARISON: Chest Single View dated 03/13/2022; Chest Single View dated 01/12/2020; Chest Single View dated 09/25/2018; Chest Single View dated 03/25/2018 FINDINGS: Lines: None. Lungs: No evidence of edema or pneumonia. Pleural: No significant pleural effusions or pneumothorax. Cardiac: The heart size is within normal limits. Mediastinum: Within normal limits. Bones: No acute fractures. Other: None IMPRESSION: No acute cardiopulmonary disease.
[2023-08-17 19:05] LABS: Absolute Lymphocytes (CBC) 1.3 K/uL (0.7-4.9); Hematocrit 44.1 % (39.6-49.0); Lymphocytes % 22.7 % (15.3-44.8); MCV 100.8 fL (80-100); MPV 8.9 fL (7.6-11.3); Platelets 159 thou/uL (152-406); RBC Red Blood Cell Count 4.38 M/uL (4.33-5.43)
[2023-08-17 19:16] LABS: Troponin High Sensitivity 15.5 pg/mL (<58.9)
[2023-08-17] MEDS ORDERED: DIPHENHYDRAMINE 50 MG/ML VIAL ONE (19:35)
[2023-08-17] MEDS ORDERED: NA CHLORIDE 0.9% 1,000 ML ONE (19:35)
[2023-08-17] MEDS ORDERED: METOCLOPRAMIDE 10 MG/2mL INJ ONE (19:35)
--- NOTE | 2023-08-17 19:53 | ER ---
Nurse's Notes [facility] Name: Stanton Christiansen Age: 62 yrs Sex: Male : 1960 Arrival Date: 08/17/2023 Time: 16:16 Bed 7 Private MD: Diagnosis: Influenza due to other identified influenza virus with gastrointestinal manifestations;Shingles Presentation: 08/17 16:22 Chief complaint: Intermittent sharp chest pain, headache, cough, and abdominal pain hb since this morning. Recent stomach cancer diagnosis. Rash noted to right forehead. reports syncopal episode while seated in chair just [employer]. VAN negative. Coronavirus screen: Client presents with at least one sign or symptom that may indicate coronavirus-19. Provider contacted for isolation considerations. Ebola Screen: No symptoms or risks identified at this time. Initial Sepsis Screen: Does the patient meet any 2 criteria? No. Patient's initial sepsis screen is negative. Does the patient have a suspected source of infection? No. Patient's initial sepsis screen is negative. Risk Assessment: Do you want to hurt yourself or someone else? Patient reports no desire to harm self or others. Onset of symptoms was August 16, 2023. 16:22 Method Of Arrival: Wheelchair hb 16:22 Acuity: PATRICK 3 hb Triage Assessment: 19:30 Pain: Complains of pain in head Pain currently is 8 out of 10 on a pain scale. Quality km8 of pain is described as aching, Also complains of nausea. 19:30 Headache History: The patient has had previous headaches and this one is similar to km8 previous episodes. General: Appears in no apparent distress. comfortable. Historical: - Allergies: 16:26 No Known Drug Allergies; hb - PMHx: 16:26 Diabetes - NIDDM; Myocardial infarction; hb - PSHx: 16:26 Appendectomy; hb - Immunization history:: Adult Immunizations up to date. - Social history:: Smoking status: Patient reports the use of cigarette tobacco products, smokes one-half pack cigarettes per day. Screenin:30 [facility] ED Fall Risk Assessment (Adult) History of falling in the last 3 months, km8 including since admission No falls in past 3 months (0 pts) Confusion or Disorientation No (0 pts) Intoxicated or Sedated No (0 pts) Impaired Gait No (0 pts) Mobility Assist Device Used No (0 pt) Altered Elimination No (0 pt) Score/Fall Risk Level 0 - 2 = Low Risk Oriented to surroundings, Maintained a safe environment, Educated pt \T\ family on fall prevention, incl call for assistance when getting out of bed, Assessed \T\ reinforced patient's understanding of fall precautions. 19:30 Abuse screen: Denies threats or abuse. Denies injuries from another. Nutritional km8 screening: No deficits noted. Tuberculosis screening: No symptoms or risk factors identified. Assessment: 19:30 General: Appears in no apparent distress. comfortable, Behavior is calm, cooperative. km8 Pain: Complains of pain in head Pain currently is 8 out of 10 on a pain scale. Quality of pain is described as aching, Pain began 2-3 days ago. Neuro: Liu Agitation-Sedation Scale (RASS): 0 - Alert and Calm Level of Consciousness is awake, alert, obeys commands, Oriented to person, place, time, situation. Cardiovascular: Denies chest pain, Capillary refill < 3 seconds Patient's skin is warm and dry. Respiratory: Airway is patent Respiratory effort is even, unlabored, Respiratory pattern is regular, symmetrical, Denies shortness of breath. GI: No signs and/or symptoms were reported involving the gastrointestinal system. Abdomen is non-distended. : No signs and/or symptoms were reported regarding the genitourinary system. EENT: No signs and/or symptoms were reported regarding the EENT system. Derm: No signs and/or symptoms reported regarding the dermatologic system. Skin is intact, is healthy with good turgor, Skin is dry, Skin is normal, Skin temperature is warm. Musculoskeletal: No signs and/or symptoms reported regarding the musculoskeletal system. Range of motion: intact in all extremities. 20:30 Reassessment: Patient appears in no apparent distress at this time. Patient and/or km8 family updated on plan of care and expected duration. Pain level reassessed. Patient is alert, oriented x 3, equal unlabored respirations, skin warm/dry/pink. Patient states feeling better. Patient states symptoms have improved. Vital Signs: 16:22 BP 99 / 65; Pulse 83; Resp 16; Temp 98.5(TE); Pulse Ox 98% on R/A; Weight 77.11 kg; hb Height 5 ft. 9 in. ; Pain 8/10; 19:00 BP 125 / 74; Pulse 74; Resp 22 S; Pulse Ox 100% on R/A; km8 20:00 BP 142 / 65; Pulse 75; Resp 20; Pulse Ox 100% on R/A; km8 16:22 Body Mass Index 25.10 (77.11 kg, 175.26 cm) hb 16:22 Pain Scale: Adult hb ED Course: 16:19 Patient arrived in ED. im 16:25 Triage completed. hb 16:26 Arm band placed on. hb 16:32 Jack Sargent MD is Attending Physician. ec2 18:09 XRAY Chest (1 view) In Process Unspecified. EDMS 18:51 Influenza Screen (a \T\ B) Sent. bc6 18:51 Basic Metabolic Panel Sent. bc6 18:51 CBC with Diff Sent. bc6 18:51 Troponin HS Sent. bc6 18:52 Inserted saline lock: 20 gauge in right forearm, using aseptic technique. Blood bc6 collected. 19:15 Attending Physician role handed off by Jack Sargent MD ec2 19:15 Everton Costello MD is Attending Physician. ec2 19:19 Edie Ruiz, PIERRE is Primary Nurse. km8 19:30 No apparent distress. pt eating oreos. km8 19:30 Patient has correct armband on for positive identification. Bed in low position. Call km8 light in reach. Side rails up X2. Client placed on continuous cardiac and pulse oximetry monitoring. NIBP monitoring applied. monitoring tech on. 19:30 Patient maintains SpO2 saturation greater than 95% on room air. km8 20:39 No provider procedures requiring assistance completed. km8 20:40 Provided Education on: d/c teaching. km8 20:40 IV discontinued, intact, bleeding controlled, No redness/swelling at site. Pressure km8 dressing applied. Administered Medications: 19:29 Drug: metoCLOPramide IVP 10 mg IVP once; over 1 to 2 minutes Route: IVP; Site: right km8 forearm; 20:38 Follow up: Response: No adverse reaction km8 19:29 Drug: diphenhydrAMINE IVP 25 mg IVP once Route: IVP; Site: right forearm; km8 20:30 Follow up: Response: No adverse reaction 8 19:30 Drug: NS 0.9% IV 1000 ml IV at 1 bolus Per protocol; 1000 mL bolus Route: IV; Rate: 1 km8 bolus; Site: right forearm; 20:38 Follow up: IV Status: Completed infusion; IV Intake: 1000ml km8 Medication: 20:39 VIS not applicable for this client. km8 Intake: 20:38 IV: 1000ml; Total: 1000ml. km8 Outcome: 19:53 Discharge ordered by MD. rt 20:39 Discharged to home ambulatory, with friend, km8 20:39 Condition: good 20:39 Discharge instructions given to patient, friend, Instructed on discharge instructions, follow up and referral plans. medication usage, Demonstrated understanding of instructions, follow-up care, medications, Prescriptions given X 3, 20:41 Patient left the ED. km8 Signatures: Dispatcher [employer] EDMadelin Westfall RN RN Everton Costello MD MD rt Mary Lou Arceo [facility] Jemma Curiel Edwin, MD MD 2 Edie Ruiz RN RN km8 Corrections: (The following items were deleted from the chart) 16:27 16:22 Chief complaint: Intermittent sharp chest pain, headache, cough, and abdominal hb pain since this morning. Recent stomach cancer diagnosis. Rash noted to right forehead. hb 16:27 16:22 Chief complaint: Intermittent sharp chest pain, headache, cough, and abdominal hb pain since this morning. Recent stomach cancer diagnosis. Rash noted to right forehead. reports syncopal episode while seated in chair just [employer]. hb 18:57 18:51 SARS-COV-2 Antigen Rapid+I.LAB.BRZ drawn and sent. [facility] EDID
--- NOTE | 2023-08-17 19:54 | EDPHYS ---
Physician Documentation [facility] Name: Stanton Christiansen Age: 62 yrs Sex: Male : 1960 Arrival Date: 08/17/2023 Time: 16:16 Bed 7 Private MD: ED Physician Everton Costello HPI: 08/17 16:38 This 62 yrs old Black Male presents to ER via Wheelchair with complaints of Cough, ec2 Headache, Chest Pain, Abdominal Pain. 16:38 Patient arrives today due to concern for cough and cold symptoms with associated nausea ec2 and vomiting, diarrhea as well as diffuse body pain including chest pain and abdominal pain. Patient reports history of diabetes, stomach cancer as well as hypertension. Reports that he is having cough and cold symptoms that are been worsening. States that he feels nauseous and has a poor appetite. Patient reports no vomiting. Patient reports that he has been having some loose stools.. Historical: - Allergies: 16:26 No Known Drug Allergies; hb - PMHx: 16:26 Diabetes - NIDDM; Myocardial infarction; hb - PSHx: 16:26 Appendectomy; hb - Immunization history:: Adult Immunizations up to date. - Social history:: Smoking status: Patient reports the use of cigarette tobacco products, smokes one-half pack cigarettes per day. ROS: 16:38 Constitutional: as per hpi ec2 Exam: 16:38 Constitutional: GEN: NAD Head: atraumatic Eyes: EOMI Ears: External ears are ec2 normal. CV: regular rate LUNGS: no respiratory distress ABD: non-distended, soft, no guarding, not rigid SKIN: no evidence of rashes MSK: no evidence of trauma NEURO: moves all extremities equally Vital Signs: 16:22 BP 99 / 65; Pulse 83; Resp 16; Temp 98.5(TE); Pulse Ox 98% on R/A; Weight 77.11 kg; hb Height 5 ft. 9 in. ; Pain 8/10; 19:00 BP 125 / 74; Pulse 74; Resp 22 S; Pulse Ox 100% on R/A; km8 20:00 BP 142 / 65; Pulse 75; Resp 20; Pulse Ox 100% on R/A; km8 16:22 Body Mass Index 25.10 (77.11 kg, 175.26 cm) hb 16:22 Pain Scale: Adult hb MDM: 16:32 Patient medically screened. ec2 16:38 ED course: Patient arrives today due to concern for cough and cold symptoms with ec2 associated chest pain and abdominal pain. Examination remarkable for well-appearing nontoxic individual is otherwise in no acute distress with a reassuring abdominal exam. Will obtain a cardiac work-up, chest x-ray, treat the patient's symptoms with crystalloid, Reglan as well as Benadryl. Currently consider viral gastroenteritis, ACS, low suspicion for PE or dissection.. 18:32 ED course: Chest x-ray independently reviewed and interpreted by me, shows no acute ec2 thoracic process. . 19:09 Transition of care: After a detail discussion of the patient's case, care is ec2 transferred to Everton Costello MD. 08/18 01:32 Differential Diagnosis: Other Flu, viral syndrome, pneumonia. Data reviewed: vital rt signs, nurses notes, lab test result(s), EKG, radiologic studies. Consideration of Admission/Observation Escalation of care including admission/observation considered. Patient has the flu, states that he feels well at this time, is desirous of discharge.. Independent interpretation of the following test(s) in the Emergency Department X-Ray: My interpretation is No consolidation seen on interpretation of x-ray images. Test considered but Not performed:. Care significantly affected by the following chronic conditions: Diabetes. Counseling: I had a detailed discussion with the patient and/or guardian regarding the historical points, exam findings, and any diagnostic results supporting the discharge/admit diagnosis, lab results, radiology results, the need for outpatient follow up. 08/17 16:38 Order name: Basic Metabolic Panel; Complete Time: 19:34 ec2 08/17 16:38 Order name: CBC with Diff; Complete Time: 19:11 ec2 08/17 16:38 Order name: Troponin HS; Complete Time: 19:34 ec2 08/17 16:38 Order name: Influenza Screen (a \T\ B); Complete Time: 19:34 ec2 08/17 18:57 Order name: SARS-COV-2 RT PCR; Complete Time: 19:34 EDMS 08/17 16:38 Order name: XRAY Chest (1 view); Complete Time: 18:31 ec2 08/17 16:38 Order name: EKG; Complete Time: 16:39 ec2 08/17 16:38 Order name: Cardiac monitoring; Complete Time: 19:19 ec2 08/17 16:38 Order name: EKG - Nurse/Tech; Complete Time: 19:30 ec2 08/17 16:38 Order name: IV Saline Lock; Complete Time: 18:51 ec2 08/17 16:38 Order name: Labs collected and sent; Complete Time: 18:51 ec2 08/17 16:38 Order name: O2 Per Protocol; Complete Time: 19:19 ec2 08/17 16:38 Order name: O2 Sat Monitoring; Complete Time: 19:19 ec2 Administered Medications: 08/17 19:29 Drug: metoCLOPramide IVP 10 mg IVP once; over 1 to 2 minutes Route: IVP; Site: right [facility] forearm; 20:38 Follow up: Response: No adverse reaction [facility] 19:29 Drug: diphenhydrAMINE IVP 25 mg IVP once Route: IVP; Site: right forearm; [facility] 20:30 Follow up: Response: No adverse reaction [facility] 19:30 Drug: NS 0.9% IV 1000 ml IV at 1 bolus Per protocol; 1000 mL bolus Route: IV; Rate: 1 km8 bolus; Site: right forearm; 20:38 Follow up: IV Status: Completed infusion; IV Intake: 1000ml km8 Disposition Summary: 08/17/23 19:53 Discharge Ordered Notes: Location: Home rt Problem: new rt Symptoms: have improved rt Condition: Stable rt Diagnosis - Influenza due to other identified influenza virus with gastrointestinal rt manifestations - Shingles rt Followup: rt - With: Private Physician - When: 5 - 6 days - Reason: Discharge Instructions: - Discharge Summary Sheet rt - Influenza, Adult rt - Shingles rt Forms: - Medication Reconciliation Form rt - Thank You Letter rt - Antibiotic Education rt - Prescription Opioid Use rt - Patient Portal Instructions rt - Leadership Thank You Letter rt Signatures: Dispatcher [employer] Naina House RN RN iw Baxter, Heather, RN RN hb [place], Ryan, MD MD rt Jack Sargent MD MD [facility] Edie Ruiz RN RN km8 Corrections: (The following items were deleted from the chart) 18:57 16:39 SARS-COV-2 Antigen Rapid+I.LAB.BRZ ordered. EDMS EDMS
[2023-08-17 21:07] VITALS: TEMP 98.5
[2023-08-17 21:10] VITALS: O2SAT 100
[2023-08-17 21:12] VITALS: BP 142/65
--- NOTE | 2023-08-20 07:58 | EKG ---
Test Date: 2023-08-17 Test Time: 16:26:30 Tool Profiling Machine Set Up Operator: JEREMY MEASUREMENT RESULTS: Intervals: Rate: 82 MN: 176 QRSD: 96 QT: 364 QTc: 425 [place]: P: 70 MN: 176 QRS: 78 T: 126 INTERPRETIVE STATEMENTS: Normal sinus rhythm ST & T wave abnormality, consider lateral ischemia Abnormal ECG Compared to ECG 03/13/2022 21:01:01 ST (T wave) deviation now present First degree AV block no longer present Right-axis deviation no longer present T-wave abnormality no longer present Possible ischemia still present Electronically Signed On 08-20-23 07:52:37 CDT by Hermelindo Parmar
== END 2023-08-17 20:41 | disposition home or self-care (01) ==
LOC: ER 16:16
DX: J10.2 Influenza due to other identified influenza virus with gastrointestinal manifestations (principal); B02.9 Zoster without complications; F17.210 Nicotine dependence, cigarettes, uncomplicated; E11.9 Type 2 diabetes mellitus without complications; Z11.52 Encounter for screening for COVID-19; I25.2 Old myocardial infarction
CPT/HCPCS: 96361; 93005; 85025; 80048; 36415; 84484; 87635; 87804 ×2; 71045; 96375; 96374; 99285; J2765; J1200; J7030

== ENCOUNTER 2023-08-20 09:17 | Emergency (ER) | payer OTHER ==
--- NOTE | 2023-08-20 09:49 | EDPHYS ---
Physician Documentation [facility] Name: Stanton Christiansen Age: 62 yrs Sex: Male : 1960 Arrival Date: 08/20/2023 Time: 09:17 Bed 13 Private MD: ED Physician Silvestre Avila HPI: 08/20 10:42 This 62 yrs old Black Male presents to ER via Wheelchair with complaints of Rash. snw 10:42 The patient's rash thought to be caused by a recent illness, influenza and zoster dx on snw Saturday in this ED. unknown what medications given. The rash can be described as crusted, patchy, vesicular. Onset: The symptoms/episode began/occurred acutely, 5 day(s) ago, and became worse and became persistent. as noted. The patient has been recently seen by a physician: 4 day(s) ago, with similar presenting complaints. Historical: - Allergies: 09:35 No Known Allergies; jl7 - Home Meds: 09:35 Aspirin Oral [Active]; Metformin Oral [Active]; jl7 - PMHx: 09:35 Diabetes - NIDDM; Myocardial infarction; jl7 - PSHx: 09:35 Appendectomy; jl7 - Immunization history:: Adult Immunizations unknown. - Social history:: Smoking status: Patient reports the use of cigarette tobacco products. ROS: 10:39 Constitutional: Positive for body aches, malaise, snw 10:39 Eyes: Positive for swelling, of the right inner canthus and right side of upper face, Exam: 10:33 Constitutional: This is a well developed, well nourished patient who is awake, alert, snw and in no acute distress. ENT: Nares patent. No nasal discharge, no septal abnormalities noted. Tympanic membranes are normal and external auditory canals are clear. Oropharynx with no redness, swelling, or masses, exudates, or evidence of obstruction, uvula midline. Mucous membranes moist. Neck: Trachea midline, no thyromegaly or masses palpated, and no cervical lymphadenopathy. Supple, full range of motion without nuchal rigidity, or vertebral point tenderness. No Meningismus. Chest/axilla: Normal chest wall appearance and motion. Nontender with no deformity. No lesions are appreciated. Cardiovascular: Regular rate and rhythm with a normal S1 and S2. No gallops, murmurs, or rubs. Normal PMI, no JVD. No pulse deficits. Respiratory: Lungs have equal breath sounds bilaterally, clear to auscultation and percussion. No rales, rhonchi or wheezes noted. No increased work of breathing, no retractions or nasal flaring. Abdomen/GI: Soft, non-tender, with normal bowel sounds. No distension or tympany. No guarding or rebound. No evidence of tenderness throughout. Back: No spinal tenderness. No costovertebral tenderness. Full range of motion. MS/ Extremity: Pulses equal, no cyanosis. Neurovascular intact. Full, normal range of motion. Neuro: Awake and alert, GCS 15, oriented to person, place, time, and situation. Cranial nerves II-XII grossly intact. Motor strength 5/5 in all extremities. Sensory grossly intact. Cerebellar exam normal. Normal gait. Psych: Awake, alert, with orientation to person, place and time. Behavior, mood, and affect are within normal limits. 10:33 Head/face: Noted is zoster with inflammation to right check, inner canthus, forehead, top of head. Vital Signs: 09:34 BP 139 / 77; Pulse 64; Resp 17; Temp 97.7; Pulse Ox 100% ; Weight 77.11 kg; Height 5 jl7 ft. 9 in. ; Pain 8/10; 10:37 BP 156 / 85; Pulse 59; Resp 18; Pulse Ox 98% on R/A; nj1 09:34 Body Mass Index 25.10 (77.11 kg, 175.26 cm) jl7 09:34 Pain Scale: Adult jl7 MDM: 09:27 Patient medically screened. snw 10:38 Differential diagnosis: zoster. Data reviewed: vital signs, nurses notes. I considered snw the following discharge prescriptions or medication management in the emergency department Medications were administered in the Emergency Department. See MAR. Counseling: I had a detailed discussion with the patient and/or guardian regarding the historical points, exam findings, and any diagnostic results supporting the discharge/admit diagnosis, the presence of at least one elevated blood pressure reading (>120/80) during this emergency department visit, the need for outpatient follow up, for definitive care, to return to the emergency department if symptoms worsen or persist or if there are any questions or concerns that arise at home. Response to treatment: There is no appreciated change of the patient's symptoms at this time. Special discussion: I have referred the patient to see his PCP for further evaluation of high blood pressure. Based on the history and exam findings, there is no indication for further emergent testing or inpatient evaluation. I discussed with the patient/guardian the need to see the opthamologist for further evaluation of the symptoms, I discussed with the patient/guardian the need to see the primary care provider for further evaluation of the symptoms. Administered Medications: 10:08 Drug: predniSONE PO 40 mg PO once Route: PO; nj1 10:38 Follow up: Response: No adverse reaction nj1 10:08 Drug: Famotidine PO 20 mg PO once Route: PO; nj1 10:38 Follow up: Response: No adverse reaction nj1 10:08 Drug: Acyclovir PO 800 mg PO once Route: PO; nj1 10:37 Follow up: Response: No adverse reaction nj1 Disposition: 10:49 Co-signature as Attending Physician, Silvestre Avila MD I reviewed the patient's care rn provided by the Advanced Practice Provider and agree with the diagnosis and treatment plan. Disposition Summary: 08/20/23 09:49 Discharge Ordered Notes: Location: Home snw Condition: Stable snw Diagnosis - Zoster ocular disease, unspecified snw - Zoster with other complications snw Followup: snw - With: Emergency Department - When: As needed - Reason: Worsening of condition Followup: snw - With: Tera Arauz MD - When: 1 - 2 days - Reason: Recheck today's complaints, Continuance of care, Re-evaluation by your physician Discharge Instructions: - Discharge Summary Sheet snw - Shingles snw - Milano Davis Syndrome snw Forms: - Medication Reconciliation Form snw - Thank You Letter snw - Antibiotic Education snw - Prescription Opioid Use snw - Patient Portal Instructions snw - Leadership Thank You Letter snw Prescriptions: - trifluridine 1 % Ophthalmic drops - instill 1 drop OPHTHALMIC route every 4 hours for 7 days administer 5 doses per snw day while awake; 1 Unspecified; Refills: 0, Product Selection Permitted - valacyclovir 1 gram Oral tablet - take 1 tablet ORAL route every 8 hours for 10 days; 30 tablet; Refills: 0, snw Product Selection Permitted - Prednisone 20 mg Oral Tablet - take 2 tablets ORAL route once daily for 5 days; 10 tablet; Refills: 0, Product snw Selection Permitted - Pepcid 20 mg Oral Tablet - take 1 tablet ORAL route once daily; 20 tablet; Refills: 0, Product Selection snw Permitted Signatures: Yulisa Mccarthy, [employer] Silvestre Avila MD MD rn Leal, Jahala, RN RN jl7 Madeline Werner RN RN nj1 Corrections: (The following items were deleted from the chart) 09:36 09:35 Allergies: Aspirin; jean-claude jlRanjeet
--- NOTE | 2023-08-20 09:49 | ER ---
Nurse's Notes [facility] Name: Stanton Christiansen Age: 62 yrs Sex: Male : 1960 Arrival Date: 08/20/2023 Time: 09:17 Bed 13 Private MD: Diagnosis: Zoster ocular disease, unspecified;Zoster with other complications Presentation: 08/20 09:30 Chief complaint: Patient states: Rash/blisters on face, started on Saturday. jl7 09:34 Coronavirus screen: At this time, the client does not indicate any symptoms associated jl7 with coronavirus-19. Ebola Screen: No symptoms or risks identified at this time. Initial Sepsis Screen: Does the patient meet any 2 criteria? No. Patient's initial sepsis screen is negative. Does the patient have a suspected source of infection? No. Patient's initial sepsis screen is negative. Risk Assessment: Do you want to hurt yourself or someone else? Patient reports no desire to harm self or others. Onset of symptoms was August 16, 2023. 09:34 Method Of Arrival: Wheelchair 7 09:34 Acuity: PATRICK 3 jl7 10:16 Anaphylaxis evaluation, the patient reports or I have noted the following symptoms nj1 which indicate a significant risk of anaphylaxis: no signs or symptoms of anaphylaxis were noted. Triage Assessment: 09:35 General: Appears in no apparent distress. uncomfortable, Behavior is calm, cooperative. jl7 Pain: Complains of pain in face Pain currently is 8 out of 10 on a pain scale. Historical: - Allergies: 09:35 No Known Allergies; jl7 - Home Meds: 09:35 Aspirin Oral [Active]; Metformin Oral [Active]; jl7 - PMHx: 09:35 Diabetes - NIDDM; Myocardial infarction; jl7 - PSHx: 09:35 Appendectomy; jl7 - Immunization history:: Adult Immunizations unknown. - Social history:: Smoking status: Patient reports the use of cigarette tobacco products. Screenin:[address] [facility] ED Fall Risk Assessment (Adult) Score/Fall Risk Level 0 - 2 = Low Risk nj1 Oriented to surroundings, Maintained a safe environment, Hourly rounding (assess needs \T\ fall precautionary measures) done. Abuse screen: Denies threats or abuse. Denies injuries from another. Nutritional screening: No deficits noted. Tuberculosis screening: No symptoms or risk factors identified. Assessment: 10:05 General: Appears in no apparent distress. uncomfortable, Behavior is calm, cooperative, nj1 appropriate for age. 10:05 Pain: Complains of pain in face. Neuro: Level of Consciousness is awake, alert, obeys nj1 commands, Oriented to person, place, time, situation. Cardiovascular: Patient's skin is warm and dry. Respiratory: Airway is patent Respiratory effort is even, unlabored. Derm: Rash noted that is on face Swelling noted to eyelids. 10:17 Reassessment: Awaiting on provider to speak with patient to be able to discharge. nj1 Vital Signs: 09:34 BP 139 / 77; Pulse 64; Resp 17; Temp 97.7; Pulse Ox 100% ; Weight 77.11 kg; Height 5 jl7 ft. 9 in. ; Pain 8/10; 10:37 BP 156 / 85; Pulse 59; Resp 18; Pulse Ox 98% on R/A; nj1 09:34 Body Mass Index 25.10 (77.11 kg, 175.26 cm) jl7 09:34 Pain Scale: Adult jl7 ED Course: 09:21 Patient arrived in ED. kj1 09:26 Yulisa Mccarthy FNP-C is PHCP. snw 09:26 Silvestre Aivla MD is Attending Physician. snw 09:35 Triage completed. jl7 09:35 Arm band placed on right wrist. jl7 09:47 Tera Arauz MD is Referral Physician. snw 09:58 Madeline Werner, PIERRE is Primary Nurse. nj1 10:05 Patient has correct armband on for positive identification. Bed in low position. Call nj1 light in reach. Provided Education on: fall precautions, call light. 10:38 No provider procedures requiring assistance completed. Patient did not have IV access nj1 during this emergency room visit. Administered Medications: 10:08 Drug: predniSONE PO 40 mg PO once Route: PO; nj1 10:38 Follow up: Response: No adverse reaction nj1 10:08 Drug: Famotidine PO 20 mg PO once Route: PO; nj1 10:38 Follow up: Response: No adverse reaction nj1 10:08 Drug: Acyclovir PO 800 mg PO once Route: PO; nj1 10:37 Follow up: Response: No adverse reaction nj1 Medication: 10:39 VIS not applicable for this client. nj1 Outcome: 09:49 Discharge ordered by . snw 10:38 Discharged to home ambulatory, nj1 10:38 Condition: stable 10:38 Discharge instructions given to patient, Instructed on discharge instructions, follow up and referral plans. medication usage, Demonstrated understanding of instructions, follow-up care, medications, Prescriptions given X 4, 10:39 Patient left the ED. nj1 Signatures: Yulisa Mccarthy, GRADUATE TEACHER EDUCATION-C GRADUATE TEACHER EDUCATION-Csnw Noemy Schrader RN RN [email or web address] Charleen Knott kj1 Madeline Werner RN RN nj1 Corrections: (The following items were deleted from the chart) 09:36 09:35 Allergies: Aspirin; jl7 jl7 10:15 10:14 General: Appears nj1 nj1 10:37 10:37 BP 156 / 85; Pulse 59bpm; Resp 18bpm; Pulse Ox 96% RA; nj1 nj1
[2023-08-20] MEDS ORDERED: FAMOTIDINE 20 MG TAB ONE (10:19)
[2023-08-20] MEDS ORDERED: predniSONE 20 MG TAB ONE ×2 (10:19)
[2023-08-20] MEDS ORDERED: ACYCLOVIR 400 MG TABLET ONE (10:19)
[2023-08-20 10:45] VITALS: TEMP 97.7
[2023-08-20 10:46] VITALS: BP 156/85; O2SAT 98
== END 2023-08-20 10:39 | disposition home or self-care (01) ==
LOC: ER 09:17
DX: B02.30 Zoster ocular disease, unspecified (principal); B02.8 Zoster with other complications; F17.210 Nicotine dependence, cigarettes, uncomplicated
CPT/HCPCS: 99283; J7512 ×2